=== PATIENT | male | born 1960 | race Caucasian/White ===

== ENCOUNTER 2017-07-17 11:06 | Observation (INO) | payer MEDICARE ==
[2017-07-17 11:46] LABS: #Basophils 0.1 thou/uL (0.0-0.2); #Eosinphils 0.3 thou/uL (0.0-0.7); #Monocytes 0.8 thou/uL (0.11-0.59); #Neutrophils 5.5 thou/uL (1.40-6.50); %Eosinophils 3.7 % (0.0-10.0); %Lymphocytes 22.9 % (21.0-51.0); %Monocytes 8.7 % (0.0-10.0); %Neutrophils 63.7 % (42.0-75.0); Hemoglobin 19.7 g/dL (14.0-18.0); Mean Corpuscular HGB CONC 32.4 g/dL (32.0-36.0); Mean Corpuscular Hemoglobin 33.2 pg (27.0-31.0); Mean Platelet Volume 10.8 fL (7.4-10.4); Platelet Count 178 thou/uL (130-400); Red Blood Cell (RBC) Count 5.94 mill/uL (4.70-6.10); White Blood Cell (WBC) Count 8.6 thou/uL (4.8-10.8)
[2017-07-17 12:09] LABS: ALT (SGPT) 46 U/L (8-55); AST (SGOT) 42 U/L (5-34); Alkaline Phosphatase 95 U/L (40-150); Anion Gap 18 mmol/L (10-20); BUN (Urea Nitrogen) 14 mg/dL (8.4-25.7); Bilirubin, Total 0.9 mg/dL (0.2-1.2); Calc. Creatinine Clearance 0 mL/min (70-130); Calcium 9.4 mg/dL (7.8-10.44); Carbon Dioxide 25 mmol/L (22-29); Chloride 98 mmol/L (98-107); Estimated GFR-MDRD 70; Globulin 3.5 g/dL (2.4-3.5); Glucose 252 mg/dL (70-105); Potassium 3.6 mmol/L (3.5-5.1); Protein, Total 7.5 g/dL (6.0-8.3); Sodium 137 mmol/L (136-145)
--- NOTE | 2017-07-17 12:09 | RAD ---
CHEST TWO VIEWS: HISTORY: Chest pain. Shortness of breath. COMPARISON: 11/21/2016 and 08/29/2016 FINDINGS: Normal cardiac silhouette. The pulmonary vessels and hilum are normal. The costophrenic angles are clear. No mass. No consolidation. No pneumothorax or osseous abnormalities. IMPRESSION: No acute cardiopulmonary process. POS: [facility]
[2017-07-17 12:12] LABS: CKMB 1.3 ng/mL (0-6.6); Troponin I Less than 0.010 ng/mL (< 0.028)
[2017-07-17] MEDS ORDERED: Aspirin 325 MG TAB ONE (12:12)
[2017-07-17] MEDS ORDERED: ISOVUE-370 76%-LOCM 1 ML ONE (14:00)
--- NOTE | 2017-07-17 14:04 | CT ---
CTA THORAX WITH CONTRAST: (Computed Tomographic Angiography, chest(noncoronary) with contrast material, and image postprocessin g) (PE protocol) Date: 07/17/17 HISTORY: 56-year-old male with dyspnea. COMPARISON: None. TECHNIQUE: IV injection of iodinated contrast: Isovue. Scan acquisition timing attempted to coincide with iodinated contrast bolus reaching maximal density in pulmonary arteries. 3D MIP reconstructions. FINDINGS: There is an approximately 0.5 x 0.6 x 0.6 cm noncalcified pulmonary nodule at posterolateral base of left lower lobe, very close to the pleural surface (axial image 79 of 109, series 3; oblique image 17 of 75, series 401). Nearby, located slightly more superiorly and slightly more posteriorly, there is a singular appearing nodule measuring approximately 0.5 x 0.6 x 0.5 cm. The rest of the lungs are clear. No pleural effusion or pneumothorax. No pulmonary thromboembolism. N o thoracic aortic aneurysm or dissection. No cardiomegaly or pericardial effusion. No mediastinal lym phadenopathy. Nonspecific finding of mildly enlarged right hilar lymph nodes. No destructive osseous lesion identified. There are several left old, healed posterolateral rib fracture deformities. IMPRESSION: 1. Two small left lower lobe pulmonary nodules. Recommend serial follow-up chest CTs, beginning in 6 months. 2. No pulmonary thromboembolism. 3. Multiple old, healed left rib fracture deformities. 4. Nonspecific mild right hilar lymphadenopathy. CODE LN jn[] POS: [facility]
[2017-07-17 17:43] LABS: Troponin I Less than 0.010 ng/mL (< 0.028)
[2017-07-17 20:23] LABS: Troponin I Less than 0.010 ng/mL (< 0.028)
[2017-07-17] MEDS ORDERED: Ondansetron HCl/PF 4 MG/2 ML Vial IVP PRN (20:44)
[2017-07-17] MEDS ORDERED: Bisacodyl 5 MG TAB PO PRN (20:44)
[2017-07-17] MEDS ORDERED: Acetaminophen 650 MG Suppository PR PRN (20:44)
[2017-07-17] MEDS ORDERED: Ondansetron ODT 4 MG TAB PO PRN (20:44)
[2017-07-17] MEDS ORDERED: Acetaminophen 325 MG TAB PO PRN (20:44)
[2017-07-17] MEDS ORDERED: Guaifenesin DM 100-10/5 ML UDCUP PO PRN (20:44)
[2017-07-17] MEDS: Sodium Chloride 0.9% 1,000 ML IV SCH (21:27)
[2017-07-17] MEDS: Famotidine 20 MG TAB PO SCH (21:31)
[2017-07-17] MEDS: Metoprolol Tartrate 100 MG TAB PO SCH (21:31)
[2017-07-17] MEDS: Docusate 100 MG CAP PO SCH (21:35)
[2017-07-17 21:43] VITALS: BMI 34.5
[2017-07-17] MEDS ORDERED: Prazosin HCl 1 MG CAP PO SCH (21:45)
--- NOTE | 2017-07-18 00:49 | HP ---
PRIMARY CARE PHYSICIAN: [facility]. CHIEF COMPLAINT: Chest pain. HISTORY OF PRESENT ILLNESS: This is a 56-year-old white male with a known history of COPD, who was admitted and worked up for chest pain about 6 months ago with a negative stress test. He presented to the emergency room complaining of 1 week of flu-like symptoms, congestion, coughing, subjective fever, headache, runny nose, some nausea, and muscle aches especially in his low back and his legs followed by 2 days of chest pain. The chest pain is sharp , substernal, worse with deep inspiration. In the emergency room, patient had EKG consistent with a possible old inferior infarct, but no acute changes had negative cardiac markers, but he had a severely elevated hemoglobin and hematocrit, hemoglobin at 19.7, hematocrit 60.9. Usually, it is kind of high but previously it has been elevated, but not this high in the past. Remainder of his blood work was relatively benign. Brain natriuretic peptide was minimally elevated at 118, and he has had a normal echocardiogram in the past year. Patient had had a CTA of the chest, which showed no pulmonary embolism or pneumonia, but did show some lung nodules that need followup in the future to make certain that they do not grow. Given the patient's high hematocrit and risk factors of smoking, high blood pressure, he is being observed in the hospital overnight to rule out acute coronary syndrome and hydrate him well. PAST MEDICAL HISTORY: 1. Coronary artery disease with previous IA, 7 years ago with stent placed. 2. Chronic obstructive pulmonary disease, recently started on an inhaler. 3. Hypertension. 4. Tobacco abuse. 5. Alcohol abuse. PAST SURGICAL HISTORY: Coronary angiography with stent. SOCIAL HISTORY: Patient drinks 2-3 beers on a daily basis, smokes half pack a day. No illicit drug use. He lives alone. FAMILY HISTORY: No significant family history of cardiac history or cancer per patient. ALLERGIES: No known drug allergies. CURRENT MEDICATIONS: 1. Wellbutrin 200 mg daily. 2. Prazosin 2 caps at night. 3. Metoprolol 100 mg twice a day. 4. Losartan/hydrochlorothiazide 100/25 mg 1 tablet daily. 5. Celexa 40 mg daily. 6. Symbicort 160/4.5 one puff twice a day. 7. Aspirin 81 mg daily. 8. Albuterol inhaler as needed. REVIEW OF SYSTEMS: Constitutional: See HPI. Eyes: No double vision or blurred vision. ENT: See HPI. Cardiovascular: See HPI. No palpitations or racing heart. Pulmonary: See HPI. Patient does feel a little short of breath right now and would like to try nebulizing treatments. Gastrointestinal: See HPI. No current abdominal pain and did have some diarrhea for the past few days , but none currently and no constipation. Genitourinary: No dysuria or hematuria. Musculoskeletal: See HPI. Skin: No rashes or lesions. Neurologic : No numbness, tingling, or focal weakness. PHYSICAL EXAMINATION: VITAL SIGNS: Blood pressure 144/86, pulse 58, respirations 14, O2 sat 96% on room air, temperature 98.0. GENERAL: This is a well-developed, obese white male in no apparent distress. EYES: Pupils are equal, round, and reactive to light. Oropharynx clear without lesions, erythema, or exudate. NECK: Supple, no lymphadenopathy, no thyroid nodules enlargement, no JVD. HEART: Regular rate and rhythm. No murmurs, rubs, or gallops. LUNGS: Patient has an occasional wheeze bilaterally, no significant increased work of breathing, no rales or rhonchi. ABDOMEN: Soft, obese, nontender to palpation, normoactive bowel sounds, no hepatosplenomegaly or other masses. EXTREMITIES: No clubbing, cyanosis, or edema. SKIN: No rashes or lesions. NEUROLOGIC: Patient has intact strength in all extremities and no facial droop. LABORATORY DATA: See HPI for pertinent positives. EKG: I did review the EKG done in our emergency room, it does show sinus bradycardia at 59 beats per minute, does have possible old Q-waves in the inferior leads. No acute ST changes or arrhythmias. Chest x-ray: I did review the chest x-ray done in the emergency room along with the radiologist's report. It does show no acute cardiopulmonary process. No evidence of infiltrates, no cardiomegaly. CT of the thorax done in the emergency room shows too small left lower lobe pulmonary nodules and recommended repeat CT in 6 months. No pulmonary thromboembolism. He does have multiple old-healed rib fractures, some mild right hilar lymphadenopathy that is nonspecific. ASSESSMENT AND PLAN: 1. Acute upper respiratory tract infection, flu-like illness, but this is improving has been over a week since the initiation of symptoms so no antivirals necessary at this point. We will treat with symptomatic antitussives and antipyretic medications as needed. 2. Chest pain pleuritic, likely secondary to cough. If all cardiac markers come back negative can discharge in the morning. 3. Chronic obstructive pulmonary disease with mild exacerbation. The patient is saturating well on room air and does not have a very significant lung exam right now, but we will give him some DuoNebs to help with his breathing, and we will start him on some oral steroids. No indication for antibiotics at this time. 4. Polycythemia- longstanding, likely secondary to smoking combined with acute dehydration, will recheck after rehydration and likely discharge in the morning. 5. Gastrointestinal prophylaxis, put patient on Pepcid twice a day. 6. Deep venous thrombosis prophylaxis, put patient on Lovenox subcutaneous. CODE STATUS: I did discuss with the patient, he is a FULL CODE. Should he be incapacitated, he states that his son will be his medical decision maker, his name is Ivan Branch. CHAS
[2017-07-18 05:20] LABS: #Basophils 0.1 thou/uL (0.0-0.2); #Eosinphils 0.4 thou/uL (0.0-0.7); #Lymphocytes 2.7 thou/uL (1.20-3.40); #Monocytes 0.8 thou/uL (0.11-0.59); #Neutrophils 4.3 thou/uL (1.40-6.50); %Basophils 0.8 % (0.0-1.0); %Eosinophils 4.8 % (0.0-10.0); %Lymphocytes 32.3 % (21.0-51.0); %Monocytes 9.6 % (0.0-10.0); %Neutrophils 52.6 % (42.0-75.0); Mean Corpuscular HGB CONC 32.6 g/dL (32.0-36.0); Mean Corpuscular Hemoglobin 33.6 pg (27.0-31.0); Mean Platelet Volume 10.7 fL (7.4-10.4); Platelet Count 142 thou/uL (130-400); RBC Distribution Width 11.7 % (11.5-14.5); Red Blood Cell (RBC) Count 5.07 mill/uL (4.70-6.10); White Blood Cell (WBC) Count 8.2 thou/uL (4.8-10.8)
[2017-07-18 05:36] LABS: Anion Gap 12 mmol/L (10-20); BUN (Urea Nitrogen) 12 mg/dL (8.4-25.7); Calc. Creatinine Clearance 175 mL/min (70-130); Calcium 8.6 mg/dL (7.8-10.44); Carbon Dioxide 26 mmol/L (22-29); Chloride 106 mmol/L (98-107); Estimated GFR-MDRD Greater than 90; Glucose 111 mg/dL (70-105); Potassium 3.6 mmol/L (3.5-5.1); Sodium 140 mmol/L (136-145)
[2017-07-18] MEDS ORDERED: Mometasone/Formoterol 120 PUFF INHALER INH SCH (06:30)
[2017-07-18] MEDS: Sodium Chloride 0.9% 1,000 ML IV SCH (07:48)
[2017-07-18] MEDS ORDERED: predniSONE 20 MG TAB PO SCH (08:00)
[2017-07-18] MEDS ORDERED: Aspirin 81 mg Enteric Coated Tablet PO SCH (09:00)
[2017-07-18] MEDS ORDERED: Enoxaparin Sodium 40 MG/0.4 ML SYRINGE SC SCH (09:00)
[2017-07-18] MEDS ORDERED: FLU VACC QS2017-18 36 mo. & older 0.5 ML SYRINGE IM ONE (09:00)
[2017-07-18] MEDS ORDERED: Losartan/Hydrochlorothiazide 100 mg/25 mg Tablet PO SCH (09:00)
[2017-07-18] MEDS ORDERED: Citalopram 20 MG TAB PO SCH (09:00)
[2017-07-18] MEDS ORDERED: buPROPion HCl 100 MG TAB PO SCH (09:00)
[2017-07-18] MEDS: Docusate 100 MG CAP PO SCH (09:31)
[2017-07-18] MEDS: Metoprolol Tartrate 100 MG TAB PO SCH (09:31)
[2017-07-18] MEDS: Famotidine 20 MG TAB PO SCH (09:31)
--- NOTE | 2017-07-18 11:25 | PDOC.PN ---
- Subjective Encounter Start Date: 07/18/17 Encounter Start Time: 07:30 -: old records requested/rev Patient seen and examined. No new complaints. No overnight events - Objective Resuscitation Status: Resuscitation Status FULL:Full Resuscitation MAR Reviewed: Yes Vital Signs & Weight: Vital Signs (12 hours) Temp Pulse Resp BP Pulse Ox 07/18/17 07:59 97.6 F 54 L 18 07/18/17 07:58 97.6 F 54 L 18 140/99 H 94 L 07/18/17 06:43 60 14 07/18/17 04:25 97.4 F L 58 L 20 132/79 92 L 07/18/17 00:41 55 L 18 94 L 07/17/17 23:39 97.9 F 60 18 117/74 92 L Weight Weight 252 lb 9.6 oz I&O: 07/17/17 07/18/17 07/19/17 06:59 06:59 06:59 Intake Total 1258 82 Output Total 1200 400 Balance 58 -318 Result Diagrams: 07/18/17 04:49 07/18/17 04:49 EKG Reviewed by me: Yes Phys Exam - Physical Examination Constitutional: NAD HEENT: PERRLA, moist MMs, sclera anicteric Neck: no JVD, supple Respiratory: no rales, wheezing present Cardiovascular: RRR, no significant murmur, no rub Gastrointestinal: soft, non-tender, no distention, positive bowel sounds Musculoskeletal: no edema, pulses present Neurological: non-focal, normal sensation, moves all 4 limbs Psychiatric: normal affect, A&O x 3 Skin: no rash, normal turgor Dx/Plan (1) Chest pain Code(s): R07.9 - CHEST PAIN, UNSPECIFIED Status: Acute Comment: due to cough , chest wall pain (2) Alcohol abuse Code(s): F10.10 - ALCOHOL ABUSE, UNCOMPLICATED Status: Chronic (3) Anxiety and depression Code(s): F41.8 - OTHER SPECIFIED ANXIETY DISORDERS Status: Chronic (4) CAD (coronary artery disease) Code(s): I25.10 - ATHSCL HEART DISEASE OF [place] CORONARY ARTERY W/O ANG PCTRS Status: Chronic (5) COPD (chronic obstructive pulmonary disease) Status: Chronic Qualifiers: COPD type: COPD with acute exacerbation Qualified Code(s): J44.1 - Chronic obstructive pulmonary disease with (acute) exacerbation (6) Hypertension Code(s): I10 - ESSENTIAL (PRIMARY) HYPERTENSION Status: Chronic (7) Macrocytosis without anemia Code(s): D75.89 - OTHER SPECIFIED DISEASES OF BLOOD AND BLOOD-FORMING ORGANS Status: Chronic (8) Obesity (BMI 30.0-34.9) Code(s): E66.9 - OBESITY, UNSPECIFIED Status: Chronic (9) Polycythemia secondary to smoking Code(s): D75.1 - SECONDARY POLYCYTHEMIA Status: Chronic (10) Tobacco abuse Code(s): Z72.0 - TOBACCO USE Status: Chronic - Plan cont current plan of care, respiratory therapy * counselled to quit smoking and alcohol abuse * will prescribe prednisone on discharge * medication reviewed as below * symptomatic treatment. Review of Systems - Review of Systems Constitutional: negative: fever, chills, sweats, weakness, malaise, other Eyes: negative: Pain, Vision Change, Conjunctivae Inflammation, Eyelid Inflammation, Redness, Other ENT: negative: Ear Pain, Ear Discharge, Nose Pain, Nose Discharge, Nose Congestion, Mouth Pain, Mouth Swelling, Throat Pain, Throat Swelling, Other Respiratory: Cough, Wheezing Cardiovascular: chest pain. negative: palpitations, orthopnea, paroxysmal nocturnal dyspnea, edema, light headedness, other Gastrointestinal: negative: Nausea, Vomiting, Abdominal Pain, Diarrhea, Constipation, Melena, Hematochezia, Other Genitourinary: negative: Dysuria, Frequency, Incontinence, Hematuria, Retention , Other Musculoskeletal: negative: Neck Pain, Shoulder Pain, Arm Pain, Back Pain, Hand Pain, Leg Pain, Foot Pain, Other Skin: negative: Rash, Lesions, David, Bruising, Other - Medications/Allergies Allergies/Adverse Reactions: Allergies Allergy/AdvReac Type Severity Reaction Status Date / Time No Known Drug Allergies Allergy Verified 11/21/16 11:38 Medications: Current Medications Acetaminophen (Tylenol) 650 mg PO Q4H PRN PRN Reason: Headache/Fever or Pain Albuterol/Ipratropium (Duoneb) 3 ml NEB Q4H PRN PRN Reason: SOB &/or Wheezing Albuterol/Ipratropium (Duoneb) 3 ml NEB Q3TU-WS [facility] Last Admin: 07/18/17 06:43 Dose: 3 ml Aspirin (Ecotrin) 81 mg PO DAILY [facility] Last Admin: 07/18/17 09:31 Dose: 81 mg Bisacodyl (Dulcolax) 10 mg PO DAILYPRN PRN PRN Reason: Constipation Bupropion HCl (Wellbutrin) 200 mg PO DAILY [facility] Last Admin: 07/18/17 09:31 Dose: 200 mg Citalopram Hydrobromide (Celexa) 40 mg PO DAILY [facility] Last Admin: 07/18/17 09:31 Dose: 40 mg Docusate Sodium (Colace) 100 mg PO BID [facility] Last Admin: 07/18/17 09:31 Dose: 100 mg Enoxaparin Sodium (Lovenox) 40 mg SC 0900 [facility] Last Admin: 07/18/17 09:32 Dose: 40 mg Famotidine (Pepcid) 20 mg PO BID [facility] Last Admin: 07/18/17 09:31 Dose: 20 mg Guaifenesin/Dextromethorphan (Robitussin Dm) 15 ml PO Q4H PRN PRN Reason: Cough HCTZ/Losartan Potassium (Hyzaar 100/25) 1 tab PO DAILY [facility] Last Admin: 07/18/17 09:31 Dose: 1 tab Sodium Chloride (Normal Saline 0.9%) 1,000 mls @ 100 mls/hr IV .Q10H [facility] Last Admin: 07/18/17 07:48 Dose: 1,000 mls Metoprolol Tartrate (Lopressor) 100 mg PO BID [facility] Last Admin: 07/18/17 09:31 Dose: 100 mg Mometasone Furoate/Formoterol Fumar (Dulera 200 Mcg/5 Mcg Inhaler) 1 puff INH BID-RT [facility] Last Admin: 07/18/17 06:41 Dose: 1 puff Ondansetron HCl (Zofran Odt) 4 mg PO Q6H PRN PRN Reason: Nausea/Vomiting Ondansetron HCl (Zofran) 4 mg IVP Q6H PRN PRN Reason: Nausea/Vomiting Prazosin HCl (Minipress) 4 mg PO HS [facility] Prednisone (Prednisone) 40 mg PO QAM-WM [facility] Last Admin: 07/18/17 09:30 Dose: 40 mg
[2017-07-18 11:54] VITALS: BP 171/102; TEMP 97.5
--- NOTE | 2017-07-18 13:01 | DIS ---
PRIMARY CARE PHYSICIAN: [facility] call admission. DATE OF ADMISSION: 07/17/2017 DATE OF DISCHARGE: 07/18/2017 DISCHARGE DISPOSITION: Home. PRIMARY DISCHARGE DIAGNOSES: 1. Chest pain, musculoskeletal due to cough. 2. Polycythemia secondary to smoking. 3. Mild chronic obstructive pulmonary disease exacerbation. SECONDARY DISCHARGE DIAGNOSES: Tobacco abuse disorder, alcohol abuse, anxiety, depression, coronary artery disease, COPD, hypertension, macrocytosis, obesity with BMI 34. PRIMARY PROCEDURE/OPERATION: None. RADIOLOGICAL INVESTIGATION: CT angio was negative for PE. Chest x-ray was negative for any acute pr ocess. SIGNIFICANT LABORATORY DATA: WBC 8.2, hemoglobin 17.0, platelets 142. Sodium 140, potassium 3.6, BU N 12, creatinine 0.79, calcium 8.6, AST 42, ALT 46, alkaline phosphatase 95, albumin 4.0. Cardiac en zymes negative x3. BNP 118.8. DISCHARGE MEDICATIONS: Ventolin HFA 1 puff q.4h. p.r.n., aspirin 81 mg p.o. daily, Tessalon 100 mg p .o. t.i.d. p.r.n., Symbicort 1 puff inhalation b.i.d., Wellbutrin 200 mg p.o. daily, Celexa 40 mg p.o . daily, Atrovent inhaler 2 puffs q.i.d., losartan with hydrochlorothiazide one tablet p.o. daily, Lo pressor 100 mg p.o. b.i.d., prazosin 2 mg p.o. at bedtime, prednisone 40 mg p.o. daily for 7 days. CONTRAINDICATIONS: None. CODE STATUS: FULL CODE. INPATIENT CONSULTANTS: None. ALLERGIES: No known drug allergy. DISCHARGE PLAN: Post hospital, the patient is instructed to follow with primary care physician in 1 or 2 weeks. HOSPITAL COURSE: A 56-year-old male who has ongoing tobacco and alcohol abuse history who was admitt ed by Dr. Krzysztof Lopez. Please see his H&P for further details. He was having chest pain which was re lated with cough and his chest pain description was consistent with musculoskeletal and rib cage pain . In the emergency room, he had chest x-ray which was negative for any acute process. CT angio was also negative for PE. He has extensive smoking history and he was having wheezing on his examination . He was having mild chronic obstructive pulmonary disease flare-up. We kept in hospital for 24 diogo rs for observation. We did serial cardiac enzymes and ruled out acute coronary syndrome. This patie nt already had full workup done in the recent past with a stress test as well as echocardiography and that is why he did not require any further cardiac evaluation. At this time, we are prescribing prednisone for 7 days, Atrovent inhaler prescribed. The rest of med ications will be continued as per previous. While in hospital, we provided counseling to avoid smoki ng and alcohol abuse. The patient is medically stable for discharge today. While in hospital, he wa s given IV fluid for has secondary polycythemia from smoking. The patient seen and examined at bedside today. Please see my progress note for further details.
[2017-07-18] MEDS ORDERED: Prazosin HCl 1 MG CAP PO SCH (21:00)
== END 2017-07-18 13:57 | disposition home or self-care (01) ==
LOC: ERS 11:06 → 2SW 16:45
PROVIDERS: ADMIT Emergency Medicine; ATTEND Emergency Medicine
DX: J44.1 Chronic obstructive pulmonary disease with (acute) exacerbation (principal); R07.89 Other chest pain; D75.1 Secondary polycythemia; F10.10 Alcohol abuse, uncomplicated; F41.9 Anxiety disorder, unspecified; F32.9 Major depressive disorder, single episode, unspecified; I25.10 Atherosclerotic heart disease of native coronary artery without angina pectoris; I10 Essential (primary) hypertension; D75.89 Other specified diseases of blood and blood-forming organs; E66.9 Obesity, unspecified; F17.210 Nicotine dependence, cigarettes, uncomplicated; J06.9 Acute upper respiratory infection, unspecified; R07.1 Chest pain on breathing; E86.0 Dehydration; I25.2 Old myocardial infarction; Z68.34 Body mass index [BMI] 34.0-34.9, adult; Z79.82 Long term (current) use of aspirin; Z79.899 Other long term (current) drug therapy; Z95.818 Presence of other cardiac implants and grafts
CPT/HCPCS: 71046; 71275; 80048; 80053; 82553; 83880; 84484 ×2; 85025 ×2; 93005; 94640 ×3; 96360; 96361 ×3; 96372; 99285; G0378; 36415; J1650; J7506; J7620

== ENCOUNTER 2017-07-28 03:39 | Inpatient (IN) | payer MEDICARE ==
[2017-07-28 04:09] LABS: Bilirubin Small (Negative); Blood, Urine Trace (Negative); Clarity CLOUDY (Clear); Glucose, Urine (Dipstick) Negative (Negative); Leukocyte Small (Negative); Protein, Urine (Dipstick) 30 mg/dL (Neg-Trace); Specific Gravity, Urine 1.024 (1.002-1.036)
[2017-07-28 04:12] LABS: Bacteria/HPF None Seen HPF (None Seen); Hyaline Casts/LPF 7-10 HYALINE CAST LPF (0-3 Hyaline); Pathc Cast-AUWi Flag 0.81 (0-2.49); Squamous Epithelial 0-3 HPF (0-3)
[2017-07-28 04:14] LABS: Nitrite Negative (Negative)
[2017-07-28 04:38] LABS: Hemoglobin 18.1 g/dL (14.0-18.0); Mean Corpuscular HGB CONC 34.6 g/dL (32.0-36.0); Mean Corpuscular Hemoglobin 34.8 pg (27.0-31.0); Platelet Count 213 thou/uL (130-400); RBC Distribution Width 11.8 % (11.5-14.5); Red Blood Cell (RBC) Count 5.22 mill/uL (4.70-6.10); White Blood Cell (WBC) Count 34.1 thou/uL (4.8-10.8)
[2017-07-28 05:09] LABS: ALT (SGPT) 32 U/L (8-55); AST (SGOT) 27 U/L (5-34); Alkaline Phosphatase 93 U/L (40-150); Anion Gap 16 mmol/L (10-20); BUN (Urea Nitrogen) 18 mg/dL (8.4-25.7); Bilirubin, Total 1.9 mg/dL (0.2-1.2); Calc. Creatinine Clearance 0 mL/min (70-130); Calcium 9.8 mg/dL (7.8-10.44); Carbon Dioxide 26 mmol/L (22-29); Chloride 90 mmol/L (98-107); Estimated GFR-MDRD 67; Globulin 3.5 g/dL (2.4-3.5); Glucose 141 mg/dL (70-105); Lipase 10 U/L (8-78); Protein, Total 7.5 g/dL (6.0-8.3); Sodium 129 mmol/L (136-145)
[2017-07-28 05:10] LABS: Band 1 % (5-11); Lymphocytes 8 % (21-51); MDiff Complete? YES; Monocytes 8 % (0-10); Neutrophil 83 % (42-75); PLT Morphology Comment Appears Adequate
[2017-07-28 05:21] LABS: Potassium 2.8 mmol/L (3.5-5.1)
[2017-07-28] MEDS ORDERED: metroNIDAZOLE 500 MG/100 ML BAG ONE (05:49)
[2017-07-28] MEDS ORDERED: Ondansetron HCl/PF 4 MG/2 ML Vial ONE ×2 (05:55→13:50)
[2017-07-28] MEDS ORDERED: Potassium Chloride 20 MEQ TAB ONE (06:37)
[2017-07-28] MEDS ORDERED: Lidocaine 1% w/Epinephrine 1:200K 30 ML VIAL ONE (07:42)
[2017-07-28] MEDS ORDERED: Bupivacaine 0.25% HCL 30 ML VIAL ONE (07:42)
[2017-07-28] MEDS ORDERED: Fentanyl 100 MCG/2 ML VIAL ONE (07:52)
[2017-07-28] MEDS ORDERED: Midazolam HCl 2 mg/2 ml Vial ONE (07:52)
[2017-07-28] MEDS ORDERED: HYDROmorphone 0.5 MG/0.5 ML SYRINGE ONE (07:53)
--- NOTE | 2017-07-28 09:04 | CT ---
PRELIMINARY REPORT/[facility]/EMERGENCY AFTER HOURS PROCEDURE: Addendum created by Raudel Mccloud MD on 07/28/2017 7:10 AM Central Time ([place]) THIS REPORT CONTAINS FINDINGS THAT MAY BE CRITICAL TO PATIENT CARE. The findings were verbally commun icated via telephone conference with Dr Barnes at 7:10 AM [employer] on 07/28/2017. The findings were acknowl edged and understood. Initial Report created on 07/28/2017 6:59 AM Central Time ([place]) EXAM: CT Abdomen and Pelvis With Intravenous Contrast CLINICAL HISTORY: 56 years old, male; Pain; Abdominal pain; Generalized TECHNIQUE: Axial computed tomography images of the abdomen and pelvis with intravenous contrast. Coronal reformatted images were created and reviewed. CONTRAST: 70 mL of ISOVUE administered intravenously. COMPARISON: No relevant prior studies available. FINDINGS: Lower thorax: Left lower lobe pulmonary nodule measuring 5 mm image 18 series 2. Left lower lobe pulm onary nodule measuring 5 mm image 21 series 2. ABDOMEN: Liver: Diffuse hepatic steatosis. Gallbladder and bile ducts: Unremarkable Pancreas: Unremarkable. Spleen: Calcified granuloma in the spleen. Adrenals: Unremarkable. Kidneys and ureters: 7 mm nonobstructing stone in the right kidney. Stomach and bowel: Duodenal diverticulum. Appendix: Appendix is enlarged measuring 8mm with diffuse surrounding inflammatory changes, small lay ering fluid and small focus of extraluminal gas adjacent to the base of the appendix seen in image 72 series 2. PELVIS: Bladder: Under distention of the urinary bladder with mild diffuse urinary bladder ross thickening. Reproductive: Unremarkable. ABDOMEN and PELVIS: Intraperitoneal space: See above. Bones/joints: Multilevel degenerative changes of the spine. No acute fracture. No dislocation. Soft tissues: Unremarkable. Vasculature: Unremarkable. No abdominal aortic aneurysm. Lymph nodes: Scattered non specific subcentimeter mesenteric lymph nodes. IMPRESSION: 1. Imaging findings consistent with acute appendicitis. Small focus of extraluminal gas adjacent to t he base of the appendix as described above suggestive of possible local perforation. 2. A 7 mm nonobstructing stone in the right kidney. 3. Incidental two 5mm left lower lobe pulmonary nodules. For low-risk patients, no follow-up is neces silvia. For high-risk patients (smoking history or other known risk factors) an optional chest CT at 12 months could be performed. Thank you for allowing us to participate in the care of your patient. Dictated and Authenticated by: Raudel Mccloud MD 07/28/2017 6:59 AM Central Time ([place]) FINAL REPORT ABDOMEN AND PELVIC CT SCAN WITH IV CONTRAST: EMERGENT AFTER HOURS TIME: 6:07 a.m. DATE: 07/28/17. FINDINGS: Findings consistent with acute appendicitis with some minimal extraluminal gas, evidence for at least microperforation without evidence for a drainable abscess. Several small pleural-based 0.[address] nodules in the left lower lobe. Small calcific focus in the region of the apex of the left ventr icle, possibly from a prior infarct. Minimal coronary artery calcific disease. Nonobstructing right renal calculus. Left renal cyst. POS: [facility]
[2017-07-28] MEDS ORDERED: Promethazine HCl 25 MG/ML VIAL IM PRN ×2 (10:27→11:34)
[2017-07-28] MEDS ORDERED: Dextrose 5% in Water 1,000 ML IV PRN (10:27)
[2017-07-28] MEDS ORDERED: Dextrose 50% Abboject 50 ML SYRINGE SLOW IVP PRN (10:27)
[2017-07-28] MEDS ORDERED: Morphine 4 MG/ML Carpuject SLOW IVP PRN ×2 (10:27→16:46)
[2017-07-28] MEDS ORDERED: traMADol HCl 50 MG TAB PO PRN ×2 (10:33)
--- NOTE | 2017-07-28 10:33 | HP ---
DATE OF ADMISSION: 07/28/2017 HISTORY OF PRESENT ILLNESS: A 56-year-old obese man presented to the emergency department with 24-hour history of right lower quadrant abdominal pain which he describes as a sharp, rated at 1 0/10. Pain was associated with two episodes of nausea and nonbilious emesis. The patient denies any fever, but admits to chills. Denies any diarrhea. PAST MEDICAL HISTORY: Pertinent for essential hypertension and chronic depression. SURGICAL HISTORY: Pertinent for bilateral shoulder arthroplasties. SOCIAL HISTORY: He is currently retired. He smokes 1 pack of cigarettes per day and has done so for over 40 years. He drinks 12-pack of beers daily. He denies any illicit drug abuse. FAMILY HISTORY: Notable for paternal grandfather with leukemia and mother with breast carcinoma. He denies any family history of heart disease or diabetes mellitus. REVIEW OF SYSTEMS: A 10 point review of systems essentially unremarkable except for as stated in pas t medical history and chief complaint. CURRENT MEDICATIONS: Includes antidepressants and antihypertensive. He does not recall the specific s. ALLERGIES: Patient denies any known drug allergies. PHYSICAL EXAMINATION: GENERAL: This reveals a 56-year-old obese man who and interactive and appears stated age. The patient is alert and oriented x3, appears to be in moderate acute distress secondary to abdominal pa in. VITAL SIGNS: Currently includes blood pressure 128/77, pulse 73, respiratory rate 16, temperature is 98.4 degrees Fahrenheit, oxygen saturation is 97% on room air. HEENT: Examination reveals normocephalic and atraumatic. Pupils are equal, round, and reactive to l ight and accommodation. Extraocular muscles are intact bilaterally. No sclerae icterus is present. Oral mucosa is pink and moist. No lesions are noted. NECK: Supple. No palpable lymphadenopathy or thyromegaly present. HEART: Reveals regular rate and rhythm, no murmurs or gallops auscultated. LUNGS: Clear to auscultation bilaterally. His breathing is regular and unlabored. ABDOMEN: Soft and obese. He has right lower quadrant tenderness to palpation at McBurney's. He has a positive Rovsing sign. Liver and spleen are nonpalpable below costal margins. EXTREMITIES: Reveals 2+ radial and pedal pulses bilaterally. No ankle edema is present. NEUROLOGIC: Reveals no focal deficits present. LABORATORY DATA AND IMAGING DATA: I personally reviewed laboratory studies including CBC with 34,100 white blood cells, hemoglobin 18.1, hematocrit is 52.4, platelet count is 213,000. Differential cou nt is as follows, 83% segmented neutrophils, 1 band, 8 lymphocytes, and 8 monocytes. Metabolic profi le: Sodium 129, potassium is 2.8, chloride is 90, bicarbonate is 26, BUN 18, creatinine is 1.14, and glucose is 141. Total bilirubin is 1.9, AST and ALT normal are at 27 and 32 respectively. Serum li pase is also normal at 10. I have reviewed CT scan of the abdomen and pelvis which reveals a dilated appendix with localized small pneumoperitoneum suggestive of perforation with significant periappend iceal fat stranding. IMPRESSION: 1. Acute appendicitis with perforation. 2. History of ethanol abuse. PLAN: Laparoscopic appendectomy. Above findings and plan discussed with the patient who indicates understanding of the information giv en. I have answered his questions. I have advised the patient of the risks and benefits of the prop osed surgery. Risks include, but not limited to bleeding, infection, injury to bowel and surrounding structures. The patient indicates understanding of this information, which I had presented to him i n the presence of his nurse. He has granted consent for this admission and surgical intervention.
--- NOTE | 2017-07-28 10:49 | OP ---
DATE OF OPERATION: 07/28/2017 PREOPERATIVE DIAGNOSIS: Acute appendicitis with perforation. POSTOPERATIVE DIAGNOSES: 1. Acute appendicitis with perforation. 2. Periappendiceal abscess. SURGERY PERFORMED: Laparoscopic appendectomy. SURGEON: Pedro Mccarthy D.O. ANESTHESIA: General endotracheal. ESTIMATED BLOOD LOSS: 20 mL. FLUIDS GIVEN: 1200 mL crystalloids. SPONGE AND INSTRUMENT COUNT: Certified as correct x2. COMPLICATIONS: None apparent at time of operation. INDICATIONS FOR PROCEDURE: A 56-year-old man presented with what reported as 24-hour histo ry of abdominal pain. Clinical and radiographic examination was consistent with acute appendicitis w ith perforation for which patient was brought to the operating room for appendectomy. FINDINGS: Consistent with acute suppurative retrocecal appendix with perforation and 2 pieces of nikolai endicolith next to the ruptured appendix. Also noted is periappendiceal abscess with a fair amount o f fibrinous exudates. DESCRIPTION OF PROCEDURE: Informed consent obtained from the patient who was brought to the operatin g room and placed in supine position. Following general anesthesia, a Hill catheter was inserted an d placed bedside to drain. Abdomen is sterilely prepped and draped in the usual fashion. Skin below the umbilicus was infiltrated with 0.25% Marcaine with epinephrine. A small curvilinear infraumbili sathish incision was made using 11 scalpel. Umbilical stalk was grasped with Severino and elevated. Veres s needle was inserted through the incision and placed in the peritoneal cavity through which the abdo men was insufflated with 3 liters of CO2 gas. Intra-abdominal pressure was noted at 3 mmHg. Followi ng abdominal insufflation, Veress needle was removed and a 5 mm trocar was introduced using a Visipor t under laparoscopy. Laparoscopy confirmed proper placement of the port, no injuries to underlying s tructures. Additional laparoscopy reveals right lower quadrant completely encased by omental adhesio ns. Under direct laparoscopy, a 5 mm suprapubic and 12 mm left lower quadrant ports were placed afte r the overlying skin was infiltrated with 0.25% Marcaine with epinephrine and appropriate incisions m kirt. The patient was placed in a Trendelenburg position and rotated to his left. I then used a Pres tige grasper to bluntly take down omental adhesions to reveal the distal ileum completely adhered to the right lateral gutter. Using EndoShears with cautery, fibrinous attachments were taken down. Onc e the adhesions were broken, the distal ileum was reflected medially to expose suppurative retrocecal appendix that was densely adhered to the right lateral gutter. Using an Endo suction catheter appen diceal abscess was evacuated. Fibrinous attachments were broken down bluntly to reveal the appendico cecal junction. Endo [place] forceps was introduced through the suprapubic port site grasping the ap pendix which was elevated. I then used a [place] dissector to create a rent through the mesoappendi x at the base. Endo-CYDNEY with a blue load was then used to divide the appendix at appendicocecal junc tion. Using white load of the Endo-CYDNEY, the mesoappendix was serially divided at the base with good hemostasis. The suppurative appendix and 2 pieces of appendicoliths were delivered off the abdominal cavity using an EndoCatch. Operative site was copiously irrigated with saline, noting good hemostas is in place. A #19 Topher drain was introduced into the operative site and allowed to exit the abdomi nal cavity through the suprapubic port site. The drain was secured to the anterior abdominal wall us ing 2-0 silk suture. Finding no other pathology, laparoscopy was terminated. Fascia of the left low er quadrant port was closed using 0 Vicryl suture and Endo closure device under laparoscopy. Abdomen was desufflated. The ports and instruments were removed and accounted for. Remainder of the skin i ncisions were then closed using 4-0 Monocryl suture in subcuticular fashion. Dermabond was applied o beena the incisions. The patient tolerated this operation without any apparent complication and was returned to recovery r oom in satisfactory condition.
[2017-07-28] MEDS ORDERED: Sodium Chloride For Inhalation 0.9% 3 ML NEB ONE (11:28)
[2017-07-28] MEDS ORDERED: Ondansetron HCl/PF 4 MG/2 ML Vial IVP PRN (11:34)
[2017-07-28] MEDS ORDERED: Promethazine HCl 25 MG/ML VIAL SLOW IVP PRN (11:34)
[2017-07-28] MEDS ORDERED: Propofol 500 MG/50 ML VIAL ONE ×3 (11:38→12:13)
[2017-07-28] MEDS ORDERED: Albuterol Sulfate 2.5 mg/3 ml Neb NEB SCH (11:45)
[2017-07-28] MEDS ORDERED: Ketorolac Tromethamine 30 MG/ML VIAL IVP SCH (12:00)
[2017-07-28] MEDS ORDERED: Propofol 1,000 MG/100 ML VIAL IV PRN (12:15)
--- NOTE | 2017-07-28 13:20 | RAD ---
CHEST 1 VIEW: HISTORY: Chest pain. COMPARISON: 11/21/16. FINDINGS: Cardiac silhouette is magnified by projection. Pulmonary vasculature is now engorged and accentuated by shallow inspiration. Focal infiltrates are present within the superior segment right lower lobe and the left posterior lung base. Mediastinum is midline. The tip of an endotracheal catheter overlies the thoracic inlet. Cardiac mo nitor leads overlie the chest. IMPRESSION: 1. Bilateral infiltrates. Cause is not evident. 2. Endotracheal catheter is in good radiographic position. POS: YULISA
[2017-07-28] MEDS ORDERED: ISOVUE-370 76%-LOCM 1 ML ONE (13:24)
[2017-07-28] MEDS ORDERED: fentaNYL Citrate/PF 2,000 MCG in Sodium Chloride 0.9% 60 ML IV PRN (13:30)
[2017-07-28] MEDS ORDERED: Fentanyl CADD 250 ML IVPB SCH ×2 (13:30→14:03)
[2017-07-28] MEDS ORDERED: Heparin 10,000 UNITS/ 10 ML VIAL SLOW IVP SCH (13:30)
[2017-07-28] MEDS ORDERED: ePHEDrine/0.9% NaCl/PF SYRINGE 50 mg/10 ml ONE (13:50)
[2017-07-28] MEDS ORDERED: Succinylcholine Chloride 20 MG/ML 10 ml SYRINGE FS ONE (13:50)
[2017-07-28] MEDS ORDERED: Ketorolac Tromethamine 30 MG/ML VIAL ONE (13:50)
[2017-07-28] MEDS ORDERED: Dexamethasone 20 MG/5 ML VIAL ONE (13:50)
[2017-07-28] MEDS ORDERED: Metoclopramide HCl 10 MG/2 ML VIAL ONE (13:50)
[2017-07-28] MEDS ORDERED: Lidocaine 1% PF 5 ML VIAL ONE (13:50)
[2017-07-28] MEDS ORDERED: Labetalol 100 MG/20 ML MDV ONE (13:50)
[2017-07-28] MEDS ORDERED: PHENYLEPHRINE-NS 100 MCG/ML 10 ML SYRINGE ONE (13:50)
[2017-07-28] MEDS ORDERED: PROPOFOL 200 MG/20 ML VIAL ONE (13:50)
[2017-07-28] MEDS ORDERED: Glycopyrrolate 0.2 MG/ML 5 ML SYRINGE ONE (13:50)
--- NOTE | 2017-07-28 13:56 | PRG ---
DATE OF SERVICE: 07/28/2017 SUBJECTIVE: Mr. Branch is a 56-year-old man with history of a 12 pack per day alcohol abuse. He als o smokes 1-2 packs of cigarettes per day and has done so for over 30 years. The patient underwent la paroscopic appendectomy and drainage of periappendiceal abscess. Postoperatively, patient failed ext ubation. He was hypoxemic in the recovery room requiring reintubation. Currently, he is sedated on mechanical ventilatory support. He awakens to voice, moves all extremities and follows commands. OBJECTIVE: CURRENT VITAL SIGNS: Includes blood pressure 108/68, pulse is 88, respiratory rate is 25 on full mec hanical ventilatory support, SIMV of 25, PEEP of 8, pressure support of 10, FiO2 of 100%. HEENT: Examination reveals normocephalic and atraumatic. Pupils equal, round, and reactive to light and accommodation. Extraocular muscles are intact bilaterally. No sclerae icterus is present. Ora l mucosa is pink and moist. No lesions are noted. He has no jugular venous distention noted. HEART: Reveals regular rate and rhythm, no murmurs or gallops auscultated. LUNGS: Reveals diffuse expiratory wheezes. Breathing is tachypneic; however, unlabored. ABDOMEN: Soft and obese. Incisional scars remain intact and clean. The Estiven-Rosenberg drain returne d a small amount of serosanguineous fluid. NEUROLOGIC: Examination reveals no focal deficits present. LABORATORY DATA AND IMAGING DATA: Post-intubation arterial blood gas reveals pO2 of 70 on FiO2 of 10 0%. Post-intubation chest x-ray reveals right middle lobe pulmonary infiltrates. IMPRESSION: 1. Acute postoperative hypoxemic respiratory failure. 2. Acute obstructive pulmonary disease exacerbation. 3. Right middle lobe pulmonary infiltrate suspicious for acute pneumonia. PLAN: 1. Continue with full mechanical ventilator support with PEEP. 2. Continue with bronchodilator therapy. We will add a burst of steroids. 3. We will also initiate heparin by continuous infusion as we were unable to obtain a CT scan of the chest to rule out pulmonary embolism. This is because the patient had IV contrast CT scan of the ab domen and pelvis earlier today. 4. Continue with broad spectrum antibiotic therapy. Above findings and plan discussed with the patient's son. He was made aware that the patient will li magdalena be on mechanical ventilator support for a few days.
[2017-07-28] MEDS ORDERED: fentaNYL Citrate/PF 2,000 MCG in Sodium Chloride 0.9% 60 ML IV SCH (14:03)
[2017-07-28] MEDS ORDERED: Lorazepam 2 MG/ML VIAL SLOW IVP PRN (14:03)
[2017-07-28] MEDS ORDERED: Morphine 2 MG/ML SYRINGE SLOW IVP PRN (14:03)
[2017-07-28 14:27] LABS: Hemoglobin 16.1 g/dL (14.0-18.0); Platelet Count 170 thou/uL (130-400)
[2017-07-28 14:37] LABS: PTT 28.9 SEC (22.9-36.1)
[2017-07-28 14:49] LABS: CKMB 1.5 ng/mL (0-6.6); Troponin I 0.036 ng/mL (< 0.028)
[2017-07-28 14:57] VITALS: BMI 31.1
[2017-07-28 15:08] LABS: INR-International Normal Ratio 1.3; Prothrombin Time 15.9 SEC (12.0-14.7)
[2017-07-28] MEDS: NS 0.9% w/ 20 MEQ KCL 1,000 ML/1,000 ML BAG IV SCH ×2 (15:38→22:04)
[2017-07-28] MEDS: Acetaminophen 500 MG TAB PO SCH ×3 (15:39→23:37)
[2017-07-28] MEDS: Oxazepam 10 MG CAP PO SCH ×3 (15:39→23:37)
[2017-07-28] MEDS: Heparin 25,000 units/D5W 500 ML IVPB SCH ×2 (16:04→16:08)
[2017-07-28] MEDS: Ketorolac Tromethamine 30 MG/ML VIAL IVP SCH ×2 (17:26→23:37)
[2017-07-28] MEDS: Piperacillin/Tazobactam 3.375 GM in Sodium Chloride 0.9% 100 ML IVPB SCH ×3 (17:28→23:37)
[2017-07-28 17:37] LABS: pH, Arterial 7.26 (7.35-7.45)
[2017-07-28 17:39] LABS: Actual Bicarbonate (HCO3a) 29.1 mEq/L (22-26); Base Excess (BEa) 0.1 mEq/L (0 (+/-) 2.5); CO2 Tension 66.4 mmHg (35.0-45.0); O2 Tension (PaO2) 93.3 mmHg (80.0-100.0)
[2017-07-28 17:40] LABS: Analyzer IN Cardio OR; Calcium, Ionized 1.1 mmol/L (1.12-1.30); Hematocrit-ABG 20.8 % (42.0-52.0); Hemoglobin (Hb) 15.8 g/dL (14.0-18.0); Puncture Site RRA
[2017-07-28] MEDS: Mometasone/Formoterol 120 PUFF INHALER INH SCH (18:52)
[2017-07-28] MEDS ORDERED: Potassium Chloride 40 MEQ in Sodium Chloride 0.9% 250 ML 250 ML IVPB SCH (19:15)
[2017-07-28] MEDS ORDERED: Enoxaparin Sodium 30 MG/0.3 ML SYRINGE SC SCH (21:00)
[2017-07-28] MEDS: Metoprolol Tartrate 50 MG TAB PO SCH (21:45)
[2017-07-28] MEDS: Prazosin HCl 1 MG CAP PO SCH (22:05)
--- NOTE | 2017-07-28 23:46 | PRG ---
DATE OF SERVICE: 07/28/2017 SUBJECTIVE: This is a 56-year-old gentleman with a history of hypertension and COPD, who was admitte d earlier for acute appendicitis. Postoperatively, the patient was reintubated in the PACU. He has since been extubated in the ICU. Upon my evaluation, the patient is on 3L of oxygen via nasal cannul a and vocalized no complaint. He states his pain has been controlled. OBJECTIVE: VITAL SIGNS: Reviewed and stable. O2 sat is 95% on 3L nasal cannula. GENERAL: The patient is resting in bed, in no acute distress. CHEST: Breathing is nonlabored. ASSESSMENT AND PLAN: As documented in progress note earlier by Dr. Mccarthy. Continue care as ordered. Continue to monitor. A.m. labs. Wean O2 as tolerated.
[2017-07-29 02:26] LABS: PTT 141.8 SEC (22.9-36.1)
[2017-07-29 02:29] LABS: Anion Gap 14 mmol/L (10-20); BUN (Urea Nitrogen) 18 mg/dL (8.4-25.7); Calc. Creatinine Clearance 110 mL/min (70-130); Calcium 8.4 mg/dL (7.8-10.44); Carbon Dioxide 20 mmol/L (22-29); Chloride 101 mmol/L (98-107); Estimated GFR-MDRD 61; Glucose 199 mg/dL (70-105); Magnesium 1.6 mg/dL (1.6-2.6); Phosphorus 2.1 mg/dL (2.3-4.7); Potassium 4.3 mmol/L (3.5-5.1); Sodium 131 mmol/L (136-145)
[2017-07-29 02:50] LABS: Band 12 % (5-11); Hemoglobin 15.5 g/dL (14.0-18.0); Lymphocytes 3 % (21-51); MDiff Complete? YES; Mean Corpuscular HGB CONC 32.8 g/dL (32.0-36.0); Mean Corpuscular Hemoglobin 34.3 pg (27.0-31.0); Mean Platelet Volume 10.2 fL (7.4-10.4); Neutrophil 85 % (42-75); Platelet Count 184 thou/uL (130-400); RBC Distribution Width 11.9 % (11.5-14.5); Red Blood Cell (RBC) Count 4.52 mill/uL (4.70-6.10); White Blood Cell (WBC) Count 31.8 thou/uL (4.8-10.8)
[2017-07-29] MEDS: Acetaminophen 500 MG TAB PO SCH ×4 (05:55→23:40)
[2017-07-29] MEDS: Oxazepam 10 MG CAP PO SCH ×4 (05:55→23:40)
[2017-07-29] MEDS: Piperacillin/Tazobactam 3.375 GM in Sodium Chloride 0.9% 100 ML IVPB SCH ×4 (05:55→23:40)
[2017-07-29] MEDS: Ketorolac Tromethamine 30 MG/ML VIAL IVP SCH ×3 (05:55→18:08)
[2017-07-29] MEDS: NS 0.9% w/ 20 MEQ KCL 1,000 ML/1,000 ML BAG IV SCH (06:46)
[2017-07-29] MEDS: Mometasone/Formoterol 120 PUFF INHALER INH SCH ×2 (07:25→19:14)
[2017-07-29] MEDS: Heparin 25,000 units/D5W 500 ML IVPB SCH (07:51)
[2017-07-29] MEDS: Ondansetron HCl/PF 4 MG/2 ML Vial IVP PRN (07:59)
[2017-07-29] MEDS: Losartan/Hydrochlorothiazide 100 mg/25 mg Tablet PO SCH (08:05)
[2017-07-29] MEDS: Metoprolol Tartrate 50 MG TAB PO SCH ×2 (08:05→21:26)
[2017-07-29] MEDS: Citalopram 20 MG TAB PO SCH (08:05)
[2017-07-29] MEDS: Folic Acid 1 MG TAB PO SCH (08:05)
[2017-07-29 08:21] LABS: CKMB 2.1 ng/mL (0-6.6)
[2017-07-29] MEDS ORDERED: Sodium Phosphate 30 MMOL in Sodium Chloride 0.9% 250 ML 250 ML IVPB SCH (08:30)
[2017-07-29 08:45] LABS: Troponin I Less than 0.010 ng/mL (< 0.028)
[2017-07-29] MEDS ORDERED: Enoxaparin Sodium 30 MG/0.3 ML SYRINGE SC SCH (09:00)
[2017-07-29] MEDS ORDERED: HumaLOG 300 UNITS/3 ML VIAL SC PRN (10:44)
[2017-07-29] MEDS ORDERED: Dextrose 50% Abboject 50 ML SYRINGE SLOW IVP PRN (10:44)
[2017-07-29] MEDS ORDERED: Dextrose 5% in Water 1,000 ML IV PRN (10:44)
--- NOTE | 2017-07-29 11:06 | PRG ---
DATE OF SERVICE: 07/29/2017 SUBJECTIVE: Mr. Branch is awake and alert. He is status post laparoscopic appendectomy and drainage of periappendiceal abscess yesterday. The patient developed postoperative acute respiratory failure secondary to acute COPD exacerbation. Currently, he denies any dyspnea, chest pain or syncope. OBJECTIVE: VITAL SIGNS: Include blood pressure 120/83, pulse 77, respiratory rate is 20. Maximum temperature s josiane admission is 97.8 degrees Fahrenheit, oxygen saturation currently 94% on 2 liters by nasal cannu la oxygen. HEENT: Examination reveals normocephalic and atraumatic. Pupils are equal, round, reactive to light and accommodation. HEART: Reveals regular rate and rhythm, no murmurs or gallops auscultated. LUNGS: Clear to auscultation bilaterally. Breathing is regular and unlabored. ABDOMEN: Soft and obese. Incisions remain intact, clean, and dry. He has no gross rebound tenderne ss on examination. Estiven-Rosenberg drain which was placed in surgery has returned 110 mL of serosangui neous fluid. LABORATORY DATA: Includes CBC with 31,800 white blood cells, hemoglobin 15.5, hematocrit is 47.2, an d platelet count is 184,000. Metabolic profile: Sodium 131, potassium is 4.3, chloride is 101, bica rbonate is 20, BUN 18, creatinine is 1.23, glucose 199, magnesium 1.6, phosphorus 2.1. IMPRESSION: 1. Postoperative day #1 status post laparoscopic appendectomy and drainage of periappendiceal absces s. 2. Resolved acute chronic obstructive pulmonary disease exacerbation. PLAN: 1. Continue with bolster steroids. 2. Increase activity as tolerated. 3. We will continue clear liquid diet until return of bowel function. The patient indicates underst anding of information I have given him today. I have answered his questions. We will transfer him t o the general surgical floor.
[2017-07-29] MEDS ORDERED: Morphine 5 MG/ML SYRINGE SLOW IVP PRN (16:45)
[2017-07-29] MEDS: Prazosin HCl 1 MG CAP PO SCH (21:57)
--- NOTE | 2017-07-29 21:58 | PRG ---
DATE OF SERVICE: 07/29/2017 SUBJECTIVE: Mr. Nadir Branch is hospital day #2 postop day #1 status post laparoscopic appendectomy . The patient has done well throughout the day. Heparin drip was stopped and patient was transferre d to the surgical floor. Upon my evaluation, he appears comfortable and vocalized complaint. OBJECTIVE: VITAL SIGNS: Reviewed and stable. GENERAL: The patient is resting in bed in no acute. Breathing is nonlabored. He is on 2 liters via l nasal cannula with O2 sat of 95%. ASSESSMENT AND PLAN: As documented in daily progress note. Continue care as ordered. Continue to m onitor.
[2017-07-30] MEDS: Piperacillin/Tazobactam 3.375 GM in Sodium Chloride 0.9% 100 ML IVPB SCH (05:34)
[2017-07-30] MEDS: Acetaminophen 500 MG TAB PO SCH ×4 (05:34→23:43)
[2017-07-30] MEDS: Oxazepam 10 MG CAP PO SCH ×4 (05:34→23:43)
[2017-07-30 07:02] LABS: Hemoglobin 15.6 g/dL (14.0-18.0); Mean Corpuscular HGB CONC 33.6 g/dL (32.0-36.0); Mean Corpuscular Hemoglobin 34.9 pg (27.0-31.0); Mean Platelet Volume 10.6 fL (7.4-10.4); Platelet Count 225 thou/uL (130-400); RBC Distribution Width 11.9 % (11.5-14.5); Red Blood Cell (RBC) Count 4.47 mill/uL (4.70-6.10); White Blood Cell (WBC) Count 25.7 thou/uL (4.8-10.8)
[2017-07-30] MEDS: Mometasone/Formoterol 120 PUFF INHALER INH SCH ×2 (07:31→19:53)
[2017-07-30 07:33] LABS: Band 4 % (5-11); Lymphocytes 2 % (21-51); MDiff Complete? YES; Monocytes 2 % (0-10); Neutrophil 92 % (42-75); RBC Morphology Normal
[2017-07-30 07:39] LABS: Anion Gap 15 mmol/L (10-20); BUN (Urea Nitrogen) 20 mg/dL (8.4-25.7); Calc. Creatinine Clearance 112 mL/min (70-130); Calcium 8.4 mg/dL (7.8-10.44); Carbon Dioxide 22 mmol/L (22-29); Chloride 101 mmol/L (98-107); Estimated GFR-MDRD 63; Glucose 155 mg/dL (70-105); Magnesium 1.9 mg/dL (1.6-2.6); Phosphorus 3.2 mg/dL (2.3-4.7); Potassium 3.7 mmol/L (3.5-5.1); Sodium 134 mmol/L (136-145)
[2017-07-30] MEDS ORDERED: traMADol HCl 50 MG TAB PO PRN (08:50)
[2017-07-30] MEDS: Aspirin 81 mg Enteric Coated Tablet PO SCH (09:02)
[2017-07-30] MEDS: Folic Acid 1 MG TAB PO SCH (09:03)
[2017-07-30] MEDS: Amoxicillin/Potassium Clav 875 MG TAB PO SCH ×2 (09:03→20:32)
[2017-07-30] MEDS: buPROPion HCl 100 MG TAB PO SCH (09:03)
[2017-07-30] MEDS: Citalopram 20 MG TAB PO SCH (09:03)
[2017-07-30] MEDS: traMADol HCl 50 MG TAB PO PRN ×2 (09:03→14:52)
[2017-07-30] MEDS: Losartan/Hydrochlorothiazide 100 mg/25 mg Tablet PO SCH (09:04)
[2017-07-30] MEDS: Metoprolol Tartrate 50 MG TAB PO SCH ×2 (09:04→20:32)
--- NOTE | 2017-07-30 11:10 | PRG ---
DATE OF SERVICE: 07/30/2017 ATTENDING PHYSICIAN: Dr. Pedro Mccarthy SUBJECTIVE: The patient is a 56-year-old obese male who presented to the ED on 07/28/2017 and was found to have acute appendicitis. He is now postop day #2 status post laparoscopic appendect hans and drainage of a periappendiceal abscess. Postoperatively, he developed acute respiratory failu re secondary to acute chronic obstructive pulmonary disease exacerbation. He has been weaned off the ventilator and is currently on the floor and stable. He does report some pain this morning, 11/01, b ut does not report any other complaints. OBJECTIVE: VITAL SIGNS: BP 117/73, pulse 88, temperature 97.6, respirations 20, O2 sat 96% on 1 liter nasal can nula. GENERAL: Obese adult male who appears older than his stated age, lying in bed in some amount of dist ress with pain behaviors such as facial grimacing. HEENT: Normocephalic, atraumatic. LUNGS: His lungs are clear to auscultation bilaterally with normal effort. CARDIOVASCULAR: He has a regular rate and rhythm with no murmurs, gallops or rubs. ABDOMEN: Soft, obese, but nondistended. His incision is intact, clean, and dry. He has approximate ly 25 mL of serosanguineous drainage in his OCTAVIA drain. LABORATORY DATA: Hematology; WBC is 25.7, hemoglobin 15.6, hematocrit 46.5, platelet count 225. ASSESSMENT: 1. Postop day #2, status post laparoscopic appendectomy and drainage of appendiceal abscess. 2. Chronic obstructive pulmonary exacerbation, resolved. PLAN: 1. Discontinue Solu-Medrol, begin Prednisone taper. 2. MiraLax for bowel function. 3. The patient can begin p.o. meds. 4. OCTAVIA drain removal. This patient was seen and examined along with Dr. Chaparro Cota on rounds this morning in place of Sam Mccarthy. Dr. Cota agrees with the assessment and plan.
[2017-07-30 14:02] LABS: Hemoglobin 14.9 g/dL (14.0-18.0); Platelet Count 235 thou/uL (130-400)
[2017-07-30] MEDS ORDERED: Polyethylene Glycol 3350 17 GM Packet PO PRN (14:06)
[2017-07-30] MEDS: Ibuprofen 600 MG TAB PO SCH ×2 (14:52→21:57)
[2017-07-30] MEDS ORDERED: Polyethylene Glycol 3350 17 GM Packet PO SCH (18:15)
[2017-07-30] MEDS: Prazosin HCl 1 MG CAP PO SCH (20:33)
--- NOTE | 2017-07-30 21:25 | PRG ---
DATE OF SERVICE: 07/30/2017 SUBJECTIVE: This is a 56-year-old gentleman status post appendectomy, postop day #2. The patient's OCTAVIA drain was removed earlier today. He has been started on p.o. medications. He has not yet had a b owel movement. Upon my evaluation, he vocalized no complaints. OBJECTIVE: VITAL SIGNS: Reviewed and stable. GENERAL: The patient is resting in bed in no acute distress. RESPIRATORY: Breathing is nonlabored. He is on room air. ABDOMEN: Soft with minimal tenderness. No distention, guarding, or rigidity. ASSESSMENT AND PLAN: As documented in daily progress note. Continue care as ordered. Continue to m onitor. The patient should be eligible for discharge once he has had a bowel movement.
[2017-07-31] MEDS: Ondansetron HCl/PF 4 MG/2 ML Vial IVP PRN ×2 (02:53→12:05)
[2017-07-31] MEDS: Oxazepam 10 MG CAP PO SCH ×4 (05:33→23:59)
[2017-07-31] MEDS: Ibuprofen 600 MG TAB PO SCH ×3 (05:33→21:07)
[2017-07-31] MEDS: Acetaminophen 500 MG TAB PO SCH ×4 (05:33→23:59)
[2017-07-31 07:27] LABS: #Basophils 0.1 thou/uL (0.0-0.2); #Lymphocytes 2.1 thou/uL (1.20-3.40); #Neutrophils 11.5 thou/uL (1.40-6.50); %Basophils 0.5 % (0.0-1.0); %Eosinophils 0.3 % (0.0-10.0); %Lymphocytes 14.4 % (21.0-51.0); %Neutrophils 77.8 % (42.0-75.0); Hemoglobin 15.1 g/dL (14.0-18.0); Mean Corpuscular HGB CONC 32.4 g/dL (32.0-36.0); Mean Corpuscular Hemoglobin 33.7 pg (27.0-31.0); Mean Platelet Volume 9.6 fL (7.4-10.4); Platelet Count 235 thou/uL (130-400); RBC Distribution Width 11.8 % (11.5-14.5); Red Blood Cell (RBC) Count 4.47 mill/uL (4.70-6.10); White Blood Cell (WBC) Count 14.8 thou/uL (4.8-10.8)
[2017-07-31] MEDS: Mometasone/Formoterol 120 PUFF INHALER INH SCH ×2 (07:29→19:05)
[2017-07-31] MEDS: Amoxicillin/Potassium Clav 875 MG TAB PO SCH ×2 (08:51→17:44)
[2017-07-31] MEDS: Folic Acid 1 MG TAB PO SCH (08:51)
[2017-07-31] MEDS: buPROPion HCl 100 MG TAB PO SCH (08:51)
[2017-07-31] MEDS: Metoprolol Tartrate 50 MG TAB PO SCH (08:51)
[2017-07-31] MEDS: predniSONE 20 MG TAB PO SCH (08:52)
[2017-07-31] MEDS: Citalopram 20 MG TAB PO SCH (08:52)
[2017-07-31] MEDS: Losartan/Hydrochlorothiazide 100 mg/25 mg Tablet PO SCH (08:52)
[2017-07-31] MEDS: Aspirin 81 mg Enteric Coated Tablet PO SCH (08:52)
[2017-07-31] MEDS ORDERED: Polyethylene Glycol 3350 17 GM Packet PO PRN (09:00)
--- NOTE | 2017-07-31 11:20 | PRG ---
DATE OF SERVICE: 07/31/2017 SUBJECTIVE: Mr. Branch is a 56-year-old man who is postoperative day #3 status post laparoscopic nikolai endectomy and drainage of periappendiceal abscess. The patient reports adequate pain control today. He tolerated general diet, although he had one bout of nonbilious emesis approximately 0500 hours th is morning. Currently, he denies any nausea. He has had one bowel movement. He passes flatus. OBJECTIVE: VITAL SIGNS: Today includes blood pressure 154/83, pulse is 66, respiratory rate is 15. Maximum tem perature in the last 24 hours is 97.8 degrees Fahrenheit, oxygen saturation is 93% on room air. HEENT: Reveals normocephalic and atraumatic. Pupils equal, round, and reactive to light and accommo dation. He has no sclerae icterus present. There was no jugular venous distention noted. HEART: Reveals regular rate and rhythm, no murmurs or gallops auscultated. CHEST: Lungs clear to auscultation bilaterally. Breathing is regular and unlabored. ABDOMEN: Soft and nondistended. Incisions remain intact, clean, and dry. He has no gross rebound t enderness on examination. LABORATORY DATA: Today includes CBC with decreasing white blood cell count of 14,800 in contrast to 25,700 yesterday. Hemoglobin and hematocrit are stable at 15.1 and 46.5 respectively. Platelet coun t is also stable at 235,000. Metabolic profile: Sodium 134, potassium is 3.7, chloride is 101, bica rbonate is 22, BUN 20, creatinine is 1.20, glucose 155. Magnesium 1.9, phosphorus 3.2. IMPRESSION: Postoperative day #3 status post laparoscopic appendectomy and drainage of periappendice al abscess. PLAN: Continue current care. Increase activity. The patient will be discharged home later today if no nausea or vomiting. We will increase his Lopressor to 100 mg p.o. b.i.d., which is his home dose . Above findings and plan discussed with the patient who indicates understanding of information give n. I have answered his questions.
[2017-07-31] MEDS: hydrALAZINE 20 MG/ML VIAL SLOW IVP PRN ×2 (13:39→17:45)
[2017-07-31] MEDS: traMADol HCl 50 MG TAB PO PRN (15:19)
[2017-07-31] MEDS: Metoprolol Tartrate 100 MG TAB PO SCH (21:06)
[2017-07-31] MEDS: Prazosin HCl 1 MG CAP PO SCH (21:07)
--- NOTE | 2017-08-01 02:19 | PRG ---
DATE OF SERVICE: 07/31/2017 SUBJECTIVE: This is a 56-year-old gentleman status post appendectomy, postop day #3. At this time, we are still awaiting bowel movement. Upon my evaluation, he has no complaints at this time. OBJECTIVE: VITAL SIGNS: He has been hypertensive. Medications have been adjusted to account for this. ABDOMEN: Soft. No tenderness. No distension, guarding or rigidity. ASSESSMENT AND PLAN: As documented in daily progress noted. Continue care as ordered. Continue to monitor. Awaiting bowel function.
[2017-08-01] MEDS: Acetaminophen 500 MG TAB PO SCH (05:41)
[2017-08-01] MEDS: Ibuprofen 600 MG TAB PO SCH (05:41)
[2017-08-01] MEDS: Oxazepam 10 MG CAP PO SCH (05:41)
[2017-08-01] MEDS: Mometasone/Formoterol 120 PUFF INHALER INH SCH (07:57)
[2017-08-01] MEDS: predniSONE 20 MG TAB PO SCH (08:40)
[2017-08-01] MEDS: Aspirin 81 mg Enteric Coated Tablet PO SCH (08:41)
[2017-08-01] MEDS: Losartan/Hydrochlorothiazide 100 mg/25 mg Tablet PO SCH (08:41)
[2017-08-01] MEDS: Amoxicillin/Potassium Clav 875 MG TAB PO SCH (08:41)
[2017-08-01] MEDS: Citalopram 20 MG TAB PO SCH (08:42)
[2017-08-01] MEDS: Folic Acid 1 MG TAB PO SCH (08:42)
[2017-08-01] MEDS: buPROPion HCl 100 MG TAB PO SCH (08:42)
[2017-08-01 12:26] VITALS: BP 158/88
[2017-08-01] MEDS: Metoprolol Tartrate 100 MG TAB PO SCH (12:28)
[2017-08-01 12:30] VITALS: TEMP 97.8
--- NOTE | 2017-08-01 13:18 | DIS ---
DATE OF ADMISSION: 07/28/2017 DATE OF DISCHARGE: 08/01/2017 ADMITTING PHYSICIAN: Pedro Mccarthy DO ADMITTING DIAGNOSES: 1. Acute appendicitis with perforation. 2. Periappendiceal abscess. DISCHARGE DIAGNOSES: 1. Acute appendicitis with perforation. 2. Periappendiceal abscess. OPERATIONS PERFORMED: Laparoscopic appendectomy and drainage of periappendiceal abscess on 8. Please see separate dictation for operative report. HISTORY AND HOSPITAL COURSE: A 56-year-old man presented with abdominal pain of 2-day duration. Clinical and radiographic examinations were consistent with acute appendicitis with perforation. The patient was taken to the operating room for laparoscopic appendectomy. Operative findings were cons istent with a ruptured appendix with periappendiceal abscess. Following the uneventful laparoscopic appendectomy and drainage of abscess, the patient was admitted to surgical floor where he remained at the time of discharge. He had postoperative acute respiratory failure secondary to acute COPD exace rbation. Once that resolved, the patient was extubated and transferred to the general floor where he remained at the time of discharge. Postoperative course has been essentially uneventful except for protracted nausea yesterday which prohibited his discharge. Today, the patient is ambulating with mi nimum difficulty. The pain is adequately controlled on oral analgesics. He recorded one bowel movem ent yesterday. He has remained hemodynamically stable and afebrile through this admission. Abdomina l examination reveals intact wounds which are healing. He has no gross peritoneal signs on examinati on. The patient will be discharged home today with the following instructions: 1. He sees me in the Surgery [facility] in 2 weeks. 2. He is to call me with any questions or problems including exacerbation of abdominal pain, fever i n excess of 101 degrees Fahrenheit, or any intolerance to oral intake. 3. He is to avoid weightlifting in excess of 20 pounds until he has been released by me. 4. He is given a prescription for tramadol 50 mg #30 to be taken 1-2 p.o. q.6. p.r.n. pain with no r efills. 5. He is also given a prescription for Augmentin 875 mg #14 to be taken 1 p.o. b.i.d. until all take n. 6. The patient has been advised to refrain from alcoholism or seek help at the office. He is to fol low up with his primary care physician with regards to his hypertension. He is to resume all prehosp ital medications as prescribed by his primary care physician. Above instructions given to the patient in the presence of his nurse. He indicates understanding of information given. I answered his questions. The patient has expressed gratitude for the care renott to him during this hospitalization and surgery.
[2017-08-03] MEDS ORDERED: predniSONE 5 MG TAB PO SCH (09:00)
--- NOTE | 2017-09-24 22:02 | EKG ---
Test Reason : Blood Pressure : / mmHG Vent. Rate : 074 BPM Atrial Rate : 074 BPM P-R Int : 144 ms QRS Dur : 084 ms QT Int : 478 ms P-R-T Axes : 041 043 003 degrees QTc Int : 530 ms Sinus rhythm with occasional Premature ventricular complexes Low voltage QRS Prolonged QT Abnormal ECG Confirmed by CARLIN VIZCARRA M.D. ([id number]) on 09/24/2017 10:02:08 PM Referred By: Confirmed By:CARLIN VIZCARRA M.D.
== END 2017-08-01 12:30 | disposition home or self-care (01) | DRG 338 ==
LOC: ERS 03:39 → CCU 10:36 → SURG A 07-29 11:05
PROVIDERS: ADMIT Surgery; ATTEND Surgery
PROC: 0DTJ4ZZ Resection of Appendix, Percutaneous Endoscopic Approach (ICD-10-PCS; principal; 2017-07-28)
PROC: 5A1935Z Respiratory Ventilation, Less than 24 Consecutive Hours (ICD-10-PCS; 2017-07-28)
PROC: 0BH17EZ Insertion of Endotracheal Airway into Trachea, Via Natural or Artificial Opening (ICD-10-PCS; 2017-07-28)
DX: K35.3 Acute appendicitis with localized peritonitis (principal); J96.01 Acute respiratory failure with hypoxia; J44.1 Chronic obstructive pulmonary disease with (acute) exacerbation; E66.9 Obesity, unspecified; I10 Essential (primary) hypertension; F32.9 Major depressive disorder, single episode, unspecified; F17.210 Nicotine dependence, cigarettes, uncomplicated; Z68.31 Body mass index [BMI] 31.0-31.9, adult; Z79.899 Other long term (current) drug therapy
CPT/HCPCS: 36415; 71045; 74177; 80048; 80053; 81003; 81015; 82553; 82805; 83690; 83735; 84100; 84484; 85014; 85018; 85025; 85049; 85610; 85730; 88304; 93005; 93010; 93306; 94002; 94640; 94664; 96365; 96367; 96375; J2270; C1751; J0360; J0744; J1100; J1170; J1644; J1885; J2001; J2250; J2405; J2543; J2550; J2704; J2765; J2920; J3010; J3480; J7050; J7506; J7620; S0020

== ENCOUNTER 2017-08-15 13:15 | Inpatient (IN) | payer MEDICARE ==
[~2017-08-15 13:15] MED LIST: ISOVUE-370 76%-LOCM 1 ML ONE; Iopamidol 370 76% 50 ML VIAL FS ONE
[2017-08-15 13:52] LABS: Hemoglobin 16.7 g/dL (14.0-18.0); Mean Corpuscular HGB CONC 31.8 g/dL (32.0-36.0); Mean Corpuscular Hemoglobin 32.5 pg (27.0-31.0); Mean Platelet Volume 10.6 fL (7.4-10.4); Platelet Count 198 thou/uL (130-400); Red Blood Cell (RBC) Count 5.13 mill/uL (4.70-6.10); White Blood Cell (WBC) Count 19.2 thou/uL (4.8-10.8)
[2017-08-15 14:07] LABS: Band 1 % (5-11); Large Platelets SLIGHT; Lymphocytes 5 % (21-51); MDiff Complete? YES; Macrocytosis SLIGHT = 6-15 cells (100X) (0-5/hpf); Monocytes 2 % (0-10); Neutrophil 87 % (42-75); PLT Morphology Comment Appears Adequate; Polychromasia SLIGHT = 2-3 cells (100X) (0-2/hpf); Reactive Lymphocytes 5 % (0-10)
[2017-08-15 14:19] LABS: ALT (SGPT) 22 U/L (8-55); AST (SGOT) 15 U/L (5-34); Albumin 3.9 g/dL (3.5-5.0); Alkaline Phosphatase 98 U/L (40-150); Anion Gap 14 mmol/L (10-20); BUN (Urea Nitrogen) 12 mg/dL (8.4-25.7); Bilirubin, Total 1.6 mg/dL (0.2-1.2); Calc. Creatinine Clearance 0 mL/min (70-130); Calcium 9.8 mg/dL (7.8-10.44); Carbon Dioxide 26 mmol/L (22-29); Chloride 97 mmol/L (98-107); Estimated GFR-MDRD 69; Globulin 3.7 g/dL (2.4-3.5); Glucose 130 mg/dL (70-105); Lipase 14 U/L (8-78); Potassium 3.4 mmol/L (3.5-5.1); Protein, Total 7.6 g/dL (6.0-8.3); Sodium 134 mmol/L (136-145)
[2017-08-15] MEDS ORDERED: Piperacillin/Tazobactam 4.5 GM in Sodium Chloride 0.9% 100 ML IVPB SCH (16:00)
[2017-08-15 16:51] LABS: Bilirubin Negative (Negative); Blood, Urine Negative (Negative); Clarity CLEAR (Clear); Glucose, Urine (Dipstick) Negative (Negative); Leukocyte Negative (Negative); Nitrite Negative (Negative); Protein, Urine (Dipstick) Negative (Neg-Trace); Specific Gravity, Urine 1.007 (1.002-1.036)
[2017-08-15 18:23] LABS: Lactic Acid 1.6 mmol/L (0.5-2.2)
[2017-08-15] MEDS ORDERED: Acetaminophen 500 MG TAB ONE (18:40)
--- NOTE | 2017-08-15 19:12 | CT ---
CT ABDOMEN AND PELVIS WITH CONTRAST 08/15/17 HISTORY: Abdominal pain. Appendix removed several weeks ago. COMPARISON: CT abdomen and pelvis 07/28/17. FINDINGS: There is a nodule in the left lower lobe measuring 8 mm and another one measuring 4 mm. These were di scussed on prior exams and recommendations given. There is callus formation at multiple left sided he aling rib fractures. Diffuse hepatic steatosis. A few calcified granulomas in the spleen. Normal prox imal small bowel rotation. Duodenal diverticulum second portion duodenum. The pancreas is unremarkable as well as the adrenal glands. Calculus is noted interpolar right kidney similar to the comparison examination. There is some inflammation along the right mid ureter. There is extensive thickening inflammation involving the cecum and terminal ileum. There is a small f ocus of extraluminal contrast on the posterior margin of the cecum, series 2, image 75. There are oth er smaller interconnecting foci. These all appear to be collapse with small sinus tracts. The amount of thickening of the cecum is increasing from the comparison examination. The urinary bladder is unremarkable. IMPRESSION: Marked thickening of the cecum greater than the comparison examination where the patient had acute ap pendicitis. There is also what appears to be small curvilinear areas of extraluminal contrast concern ing for small sinus tracts. No large drainable collection is apparent. There also appears to be a sma ll area of fat necrosis in the expected area of prior appendectomy. Code T POS: [id number]
[2017-08-15] MEDS ORDERED: Ondansetron HCl/PF 4 MG/2 ML Vial IVP PRN ×2 (19:42→22:48)
[2017-08-15] MEDS ORDERED: Acetaminophen 325 MG TAB PO PRN (19:42)
[2017-08-15] MEDS ORDERED: Ondansetron ODT 4 MG TAB SL PRN (19:42)
[2017-08-15] MEDS ORDERED: Morphine 5 MG/ML SYRINGE SLOW IVP PRN (19:43)
[2017-08-15] MEDS ORDERED: Sodium Chloride 0.9% 1,000 ML IV SCH (22:30)
[2017-08-15] MEDS: Piperacillin/Tazobactam 3.375 GM in Sodium Chloride 0.9% 100 ML IVPB SCH (23:04)
[2017-08-15 23:56] VITALS: BMI 32.5
[2017-08-15] MEDS ORDERED: Piperacillin/Tazobactam 3.375 GM in Sodium Chloride 0.9% 100 ML IVPB SCH (23:59)
[2017-08-16] MEDS: D5 1/2 NS w/20 mEq KCL 1,000 ML IV SCH ×2 (01:09→08:17)
[2017-08-16 04:26] LABS: #Eosinphils 0.1 thou/uL (0.0-0.7); #Lymphocytes 1.6 thou/uL (1.20-3.40); #Monocytes 1.6 thou/uL (0.11-0.59); #Neutrophils 11.8 thou/uL (1.40-6.50); %Basophils 0.1 % (0.0-1.0); %Eosinophils 0.5 % (0.0-10.0); %Lymphocytes 10.4 % (21.0-51.0); %Monocytes 10.7 % (0.0-10.0); %Neutrophils 78.3 % (42.0-75.0); Hemoglobin 14.5 g/dL (14.0-18.0); Mean Corpuscular HGB CONC 33.4 g/dL (32.0-36.0); Mean Corpuscular Hemoglobin 34.2 pg (27.0-31.0); Mean Platelet Volume 10.6 fL (7.4-10.4); Platelet Count 175 thou/uL (130-400); Red Blood Cell (RBC) Count 4.25 mill/uL (4.70-6.10); White Blood Cell (WBC) Count 15.1 thou/uL (4.8-10.8)
[2017-08-16 04:39] LABS: Anion Gap 10 mmol/L (10-20); BUN (Urea Nitrogen) 10 mg/dL (8.4-25.7); Calc. Creatinine Clearance 137 mL/min (70-130); Calcium 8.6 mg/dL (7.8-10.44); Carbon Dioxide 27 mmol/L (22-29); Chloride 105 mmol/L (98-107); Estimated GFR-MDRD 83; Glucose 158 mg/dL (70-105); Potassium 3.6 mmol/L (3.5-5.1); Sodium 138 mmol/L (136-145)
[2017-08-16] MEDS: Piperacillin/Tazobactam 3.375 GM in Sodium Chloride 0.9% 100 ML IVPB SCH ×2 (05:21→11:39)
--- NOTE | 2017-08-16 15:04 | HP ---
DATE OF SERVICE: 08/16/2017 HISTORY OF PRESENT ILLNESS: This is a 57-year-old man who is postoperative day #19 status post lapar oscopic appendectomy for ruptured appendix. The patient presented to the emergency department last n ight with recurrent right-sided abdominal pain. He denied any fevers or chills. He has been tolerat ing diet and having bowel movements. He report one episode of diarrhea prior to the onset of abdomin al pain. PAST MEDICAL HISTORY: Pertinent for chronic alcoholism, although the patient reports he has not had any alcohol since last discharge. Other pertinent past medical history includes essential hypertensi on and chronic depression. SURGICAL HISTORY: Significant for most recent laparoscopic appendectomy of which the patient is post op day #19. He has also status post bilateral shoulder arthroplasties. SOCIAL HISTORY: The patient smokes 1 pack of cigarettes per day and he has done so for over 40 years and he used to drink a 2-pack of beer a day. He reports he has not had any alcohol or smoked cigare ttes since last discharge. He denies any illicit drug abuse. FAMILY HISTORY: Noncontributory for his presentation. PREHOSPITALIZATION MEDICATIONS: Includes Wellbutrin 200 mg p.o. daily, Celexa 40 mg p.o. daily, losa rtan/hydrochlorothiazide combination 100/25 p.o. daily, metoprolol 100 mg p.o. b.i.d. and Remeron 30 mg p.o. at bedtime. He takes aspirin 81 mg p.o. daily. The patient also takes prazosin 2 mg p.o. at bedtime. ALLERGIES: Patient denies any known drug allergies. Ten point review of systems essentially unremarkable except for as stated in past medical history and chief complaint. PHYSICAL EXAMINATION: GENERAL: This reveals a 57-year-old normally developed man who is otherwise coherent and interactive and appears stated age. The patient is alert and oriented x3, appears to be in no acute distress at the time of my evaluation. VITAL SIGNS: Includes blood pressure 125/78, pulse is 78, respiratory rate 14, maximum temperature s josiane admission is 99.5 degrees Fahrenheit, oxygen saturation 96% on room air. HEENT: Examination reveals normocephalic and atraumatic. Pupils are equal, round, and reactive to l ight and accommodation. Extraocular muscles are intact bilaterally. He has no sclerae icterus prese nt. HEART: Reveals regular rate and rhythm, no murmurs or gallops auscultated. LUNGS: Clear to auscultation bilaterally. Breathing is regular and unlabored. ABDOMEN: Soft with moderate right lower quadrant tenderness to palpation. He has no gross rebound t enderness on examination. NEUROLOGIC: Examination reveals no focal deficits present. LABORATORY DATA AND IMAGING DATA: Laboratory findings today include CBC with 15,100 white blood cell s, hemoglobin is 14.5, hematocrit is 43.5, and platelet count is 175,000. White blood cell count yes terday was 19,200. Differential counts are as follows, 87% segmented neutrophils, 1 band, 5 lymphocy jae, and 2 monocytes. Metabolic profile today; sodium 138, potassium is 3.6, chloride is 105, bicarb zulma 27, BUN 10, creatinine 0.94, glucose 158. I have personally reviewed the CT scan of the abdome n and pelvis which is remarkable for some thickening and inflammation of the cecum and terminal ileum . There is no drainable fluid collection or pneumoperitoneum present. IMPRESSION: 1. Postoperative day #19 status post laparoscopic appendectomy for gangrenous perforated appendix. 2. Essential hypertension. 3. History of chronic depression. PLAN: Continue with antibiotic therapy. Diet will be provided as tolerated. Above findings and plan discussed with the patient who indicates understanding of information given. I have advised him that there is no acute surgical indication at this time.
[2017-08-16] MEDS: Acetaminophen 500 MG TAB PO SCH ×2 (15:22→20:20)
[2017-08-16] MEDS: metroNIDAZOLE 500 MG TAB PO SCH ×2 (15:25→20:20)
[2017-08-16] MEDS: Ibuprofen 600 MG TAB PO PRN (17:33)
[2017-08-16] MEDS ORDERED: Cipro 250 MG TAB PO SCH (20:00)
[2017-08-16] MEDS: Cipro 250 MG TAB PO SCH (20:20)
[2017-08-16] MEDS: traMADol HCl 50 MG TAB PO PRN (20:20)
[2017-08-16] MEDS: Famotidine 20 MG TAB PO SCH (20:20)
[2017-08-17] MEDS: Acetaminophen 500 MG TAB PO SCH ×4 (01:55→21:29)
[2017-08-17] MEDS: traMADol HCl 50 MG TAB PO PRN ×2 (04:12→21:28)
[2017-08-17] MEDS: Cipro 250 MG TAB PO SCH ×2 (05:52→21:29)
--- NOTE | 2017-08-17 06:26 | PRG ---
DATE OF SERVICE: 08/16/2017 SUBJECTIVE: This is a 57-year-old male postop day #19 from status post laparoscopic appendectomy for ruptured appendix. He does complain of increased abdominal pain with inflammation of the cecum and terminal ileum. OBJECTIVE: Physical exam, most of the vital signs have been stable. ASSESSMENT AND PLAN: Continue care as noted in the daily progress note. Continue to monitor. Disch arge disposition is pending.
[2017-08-17] MEDS ORDERED: FLU VACC QS2017-18 36 mo. & older 0.5 ML SYRINGE IM ONE (09:00)
[2017-08-17] MEDS: metroNIDAZOLE 500 MG TAB PO SCH ×3 (09:39→21:29)
[2017-08-17] MEDS: Famotidine 20 MG TAB PO SCH ×2 (09:39→21:30)
--- NOTE | 2017-08-17 10:25 | PRG ---
DATE OF SERVICE: 08/17/2017 SUBJECTIVE: Mr. Branch is a 57-year-old man, who presented with abdominal pain approximately 19 days following an uneventful laparoscopic appendectomy. CT scan of the abdomen and pelvis revealed inflammation around the operative site and no drainable fl uid collection present. The patient was placed on IV antibiotics. Today, he reports 2/10 abdominal pain. He has some nausea, but has not had any emesis. He passes fl atus, has not had any bowel movement. Denies any fevers or chills. OBJECTIVE: VITAL SIGNS: This morning includes blood pressure 146/99, pulse is 80 and stable, respiratory rate i s 18, maximum temperature in the last 24 hours is 98.4 degrees Fahrenheit, oxygen saturation is 97% o n room air. HEENT: Reveals normocephalic and atraumatic. HEART: Reveals regular rate and rhythm, no murmurs or gallops auscultated. LUNGS: Clear to auscultation bilaterally. Breathing regular and unlabored. ABDOMEN: Soft, nontender and nondistended. Incisional scars are intact and healed. Clearly, patien t has no gross rebound tenderness present. IMPRESSION: Postoperative abdominal pain with inflammation in the operative site. The patient is he modynamically stable. PLAN: Continue antibiotic therapy. The patient will be discharged home following return of bowel fu nction, marked by a bowel movement. He indicates understanding of information provided.
[2017-08-17] MEDS ORDERED: Bisacodyl 10 MG SUPP PR SCH (15:00)
[2017-08-17] MEDS: Senokot S 8.6-50 MG TAB PO SCH (21:29)
[2017-08-18] MEDS: Acetaminophen 500 MG TAB PO SCH ×4 (02:41→20:55)
[2017-08-18] MEDS: Cipro 250 MG TAB PO SCH (06:36)
[2017-08-18] MEDS: Senokot S 8.6-50 MG TAB PO SCH ×3 (09:37→20:59)
[2017-08-18] MEDS: Famotidine 20 MG TAB PO SCH ×2 (09:54→21:00)
[2017-08-18] MEDS: metroNIDAZOLE 500 MG TAB PO SCH (09:54)
--- NOTE | 2017-08-18 11:36 | RAD ---
ABDOMEN 1 VIEW: Date: 08/18/17 HISTORY: Ileus. FINDINGS/IMPRESSION: The bowel gas pattern is unremarkable. The small bowel loops do not appear abnormally dilated. Air an d fecal material is seen in the colon. No suspicious calcifications are seen. There are degenerative changes in the spine. POS: [facility]
--- NOTE | 2017-08-18 12:00 | PRG ---
DATE OF SERVICE: 08/18/2017 SUBJECTIVE: Mr. Branch is awake and alert today. He reports adequate pain control. He complains of recurrent nausea and had two bouts of emesis overnight. This morning, he is nauseated to point he is afraid of eating. He had had two small bowel movements over the last 24 hours. Denies any fevers or chills. OBJECTIVE: VITAL SIGNS: Today includes blood pressure 149/103, pulse 96, respiratory rate is 18, maximum temper ature in the last 24 hours is 98.6 degrees Fahrenheit, oxygen saturation 95% on room air. HEENT: Reveals normocephalic and atraumatic. Pupils equal, round, reactive to light and accommodati on. HEART: Reveals regular rate and rhythm. No murmurs or gallops auscultated. CHEST: Clear to auscultation bilaterally. Breathing regular and unlabored. ABDOMEN: Soft, nontender, nondistended. Her incisions are clean and healed. No erythema or indurat ion. IMPRESSION: 1. Postoperative day #21, status post laparoscopic appendectomy for gangrenous appendix with rupture . 2. Resolving enterocolitis. PLAN: 1. I suspect that the recurrent nausea is likely secondary to either ciprofloxacin or metronidazole or combination there off. 2. Antibiotic therapy will be changed to Augmentin, which the patient tolerated in time past. We wi ll continue with general diet and activity as tolerated. The patient will be discharged home tomorro w if he stays nausea free.
[2017-08-18] MEDS: Ondansetron ODT 4 MG TAB PO PRN ×2 (14:02→21:09)
[2017-08-18] MEDS: Amoxicillin/Potassium Clav 875 MG TAB PO SCH (20:59)
[2017-08-18] MEDS: Ibuprofen 600 MG TAB PO PRN (21:02)
[2017-08-19] MEDS: Acetaminophen 500 MG TAB PO SCH ×2 (02:58→08:20)
[2017-08-19 04:17] LABS: #Basophils 0.1 thou/uL (0.0-0.2); #Eosinphils 0.1 thou/uL (0.0-0.7); #Lymphocytes 2.2 thou/uL (1.20-3.40); #Monocytes 1.5 thou/uL (0.11-0.59); #Neutrophils 10.4 thou/uL (1.40-6.50); %Basophils 0.4 % (0.0-1.0); %Eosinophils 0.9 % (0.0-10.0); %Lymphocytes 15.7 % (21.0-51.0); %Monocytes 10.2 % (0.0-10.0); %Neutrophils 72.8 % (42.0-75.0); Hemoglobin 16.2 g/dL (14.0-18.0); Mean Corpuscular HGB CONC 32.7 g/dL (32.0-36.0); Mean Corpuscular Hemoglobin 33.8 pg (27.0-31.0); Mean Platelet Volume 10.6 fL (7.4-10.4); Platelet Count 258 thou/uL (130-400); RBC Distribution Width 12.1 % (11.5-14.5); Red Blood Cell (RBC) Count 4.79 mill/uL (4.70-6.10); White Blood Cell (WBC) Count 14.2 thou/uL (4.8-10.8)
[2017-08-19 04:36] LABS: Anion Gap 9 mmol/L (10-20); BUN (Urea Nitrogen) 5 mg/dL (8.4-25.7); Calc. Creatinine Clearance 140 mL/min (70-130); Calcium 9.6 mg/dL (7.8-10.44); Carbon Dioxide 35 mmol/L (22-29); Chloride 102 mmol/L (98-107); Estimated GFR-MDRD 85; Glucose 108 mg/dL (70-105); Magnesium 2.1 mg/dL (1.6-2.6); Phosphorus 4.1 mg/dL (2.3-4.7); Potassium 3.5 mmol/L (3.5-5.1); Sodium 142 mmol/L (136-145)
[2017-08-19] MEDS ORDERED: Potassium Chloride 40 MEQ in Sodium Chloride 0.9% 250 ML 250 ML IVPB SCH (05:00)
[2017-08-19] MEDS: Senokot S 8.6-50 MG TAB PO SCH (08:19)
[2017-08-19] MEDS: Amoxicillin/Potassium Clav 875 MG TAB PO SCH (08:19)
[2017-08-19] MEDS: Famotidine 20 MG TAB PO SCH (08:19)
[2017-08-19 11:38] VITALS: BP 148/79; TEMP 98.2
--- NOTE | 2017-08-19 11:56 | PRG ---
DATE OF SERVICE: 08/19/2017 ATTENDING PHYSICIAN: Dr. Pedro Mccarthy. SUBJECTIVE: Mr. Branch is a 57-year-old male, who is status post laparoscopic appendectomy with subsequent return to ER with abdominal pain. CT scan of the abdomen revealed inflammation around the operative site and no drainable fluid collection. He was admitted to the hospital and started on IV antibiotics. He was then transitioned to Cipro and Flagyl oral. Due to nausea when taking Flagyl, Cipro and Flagyl were stopped, and he was transitioned over to Augmentin , which he has previously taken without nausea. Overnight, he had bouts of asymptomatic bradycardia. EKG showed sinus rhythm with PVCs and prolonged QT. Zofran has been stopped. SUBJECTIVE: Mr. Branch is ambulatory on the floor without symptoms related to bradycardia. OBJECTIVE: VITAL SIGNS: Temperature 98.4, pulse 52, respirations 16, O2 saturation 97%, blood pressure 138/79. HEENT: Atraumatic, normocephalic. PULMONARY: Bilateral breath sounds clear. No respiratory distress. CARDIOVASCULAR: Bradycardia, rate 50s to 60s. ABDOMEN: Soft, nontender, nondistended. No abdominal pain to palpation. No masses. EXTREMITIES: Moves all extremities. Ambulatory without assistance. ASSESSMENT: 1. Postoperative day #22, status post laparoscopic appendectomy for gangrenous appendix with rupture. 2. Resolving enterocolitis. 3. Asymptomatic sinus bradycardia. 4. Hypokalemia PLAN: 1. Zofran has been stopped. We will hold Zofran indefinitely as EKG showed prolonged QT likely related to concurrent use of Zofran and Cipro. 2. Anticipate DC home later today if heart rate returns to normal and patient remains asymptomatic. Patient was seen and examined with Dr. Mccarthy, who agrees with the assessment and plan. [facility]
--- NOTE | 2017-08-19 13:40 | DIS ---
DATE OF ADMISSION: 08/15/2017 DATE OF DISCHARGE: 08/19/2017 ADMITTING PHYSICIAN: Dr. Dominic Molina. DISCHARGING PHYSICIAN: Dr. Pedro Mccarthy. REASON FOR HOSPITALIZATION: Abdominal pain status post laparoscopic appendectomy. HOSPITAL DIAGNOSES: 1. Enterocolitis. 2. Asymptomatic sinus bradycardia. 3. Hypokalemia. DISCHARGE CONDITION: Good. DISPOSITION: Home. MEDICATIONS: Augmentin 875 mg q.12 hours x10 days. The patient may resume all other home medication s. THERAPY: None. DIET: Regular. FOLLOWUP: Dr. Mccarthy in [address] scan of abdomen. BRIEF HISTORY OF HOSPITALIZATION: Mr. Branch is a 57-year-old male who is 22 days status post laparo scopic appendectomy for gangrenous appendix. He returned to the hospital 4 days ago with abdominal p ain. CT scan at that time revealed inflammation around the operative site and no drainable fluid col lection. He was admitted to the hospital and started on IV antibiotics. He was then transitioned to Cipro and Flagyl orally. Due to nausea when taking Flagyl, Cipro and Flagyl were stopped and he was transitioned to Augmentin. He has previously taken Augmentin without nausea. He did experience mykel e asymptomatic sinus bradycardia. EKG showed prolonged QT interval. This was thought likely to be f rom concurrent administration of Zofran and fluoroquinolones. Both Zofran and Cipro were stopped. H is heart rate subsequently returned to normal baseline. At the time of discharge, his heart rate is between 70 and 80 beats per minute. He has remained asymptomatic. He is ambulatory around the unit with no dizziness, chest pain, shortness of breath or syncope. He was evaluated on the day of discha rge by Dr. Mccarthy and cleared for discharge home. He is to follow up with Dr. Mccarthy in 2 weeks with r epeat CT scan. He was given followup information, discharge instructions, and strict return precauti ons. He verbalized understanding. The patient was seen and examined with Dr. Mccarthy who agrees with the assessment and plan for discharg e.
--- NOTE | 2017-08-22 16:47 | EKG ---
Test Reason : Blood Pressure : / mmHG Vent. Rate : 068 BPM Atrial Rate : 068 BPM P-R Int : 142 ms QRS Dur : 074 ms QT Int : 452 ms P-R-T Axes : 058 -12 056 degrees QTc Int : 480 ms Sinus rhythm with frequent Premature ventricular complexes Cannot exclude Inferior infarct , age undetermined Low voltage QRS Prolonged QT Abnormal ECG Confirmed by SOREN MARISCAL ([id number]) on 08/22/2017 4:47:30 PM Referred By: Confirmed By:SOREN MARISCAL
--- NOTE | 2017-08-24 07:37 | PQF ---
MANFRED ARAUZKAMARI [id number] SURG A- [id number] CLINICAL DOCUMENTATION CLARIFICATION FORM: POST DISCHARGE Addendum to original discharge summary date: DATE: 08/24/2017 ATTN: Dr. Mccarthy Please exercise your independent, professional judgment in responding to the clarification form. Clinical indicators are provided on the bottom of this form for your review Please check appropriate box(s): [ ] Enterocolitis is a postoperative complication due to recent surgery [ X ] Enterocolitis is not a postoperative complication due to recent surgery [ ] Other diagnosis (please specify) [ ] Unable to determine In addition, please specify: Present on Admission (POA): [ ] Yes [ ] No [ ] Unable to determine CLINICAL INDICATORS - SIGNS / SYMPTOMS / LABS (per H&P/Progress Notes) Recurrent right sided abdominal pain. CT scan showed inflammation around the operative site and no drainable fluid collection. Enterocolitis. RISK FACTORS (per H&P) Status post laparoscopic appendectomy (per H&P post op day #19 on admission). TREATMENT: (per ED/Progress Notes) IV Zosyn. Transitioned to oral Cipro and Flagyl. Oral Augmentin. IV Fluids (This form is maintained as a part of the permanent medical record) 2014 [employer]. All Rights Reserved Silvia [email or web address] [phone] Note to Provider: In responding to this query, you must exercise independent clinical judgment. The fact that a query is placed does not imply that any particular answer is desired or expected. Please document your response/ clarification to this query in the patients medical record. Your response should clarify and resolve conflicting, ambiguous, or incomplete information in the health record regarding any significant reportable condition or procedure. ( 2008 [facility] Practice Brief, pg. 5) [employer] does not endorse or approve queries developed by the hospital or its agents and issued through the [employer] Monitor software that are not in accordance with the rules or regulations promulgated by the Centers for Medicare and Medicaid (CMS), Office of [employer] (OIG), or US Department of Health and Human Services and AHIPA 2008 Practice Brief Managing an Effective Query Process or its updates (Practice Brief). [facility]
== END 2017-08-19 15:05 | disposition home or self-care (01) | DRG 392 ==
LOC: ERS 13:15 → SURG A 17:44 → ERS 18:45
PROVIDERS: ADMIT Surgery; ATTEND Surgery
DX: K52.9 Noninfective gastroenteritis and colitis, unspecified (principal); I45.81 Long QT syndrome; E87.6 Hypokalemia; R00.1 Bradycardia, unspecified; F17.210 Nicotine dependence, cigarettes, uncomplicated; I10 Essential (primary) hypertension; F32.9 Major depressive disorder, single episode, unspecified; Z79.82 Long term (current) use of aspirin; F10.20 Alcohol dependence, uncomplicated; Z79.899 Other long term (current) drug therapy; T45.0X5A Adverse effect of antiallergic and antiemetic drugs, initial encounter; T36.8X5A Adverse effect of other systemic antibiotics, initial encounter; R11.2 Nausea with vomiting, unspecified; T37.8X5A Adverse effect of other specified systemic anti-infectives and antiparasitics, initial encounter; Y92.239 Unspecified place in hospital as the place of occurrence of the external cause
CPT/HCPCS: 36415; 36416; 74018; 74177; 80048; 80053; 81003; 83605; 83690; 83735; 84100; 85025; 87040; 87086; 90471; 90682; 93005; 93010; 94640; 96361; 96365; A4216; G0008; J2270; J2405; J2543; J3480; J7050; J7620; Q0162; Q2036

== ENCOUNTER 2018-07-01 14:47 | Outpatient (CLI) | payer MEDICARE ==
--- NOTE | 2018-07-01 16:04 | RAD ---
TWO VIEW CHEST: History: Shortness of breath. Comparison: 07-17-17 two view exam. FINDINGS: Elevated right hemidiaphragm appears stable. No evidence of infiltrate or effusion. Vascular markings normal. Heart size is upper normal and stable. Osseous structures unremarkable. IMPRESSION: No acute process apparent. POS: [facility]
== END 2018-07-01 14:48 | disposition home or self-care (01) ==
LOC: RAD-FRANK 14:47
PROVIDERS: ATTEND Nurse Practitioner Family
DX: R06.02 Shortness of breath (principal)
CPT/HCPCS: 71046

== ENCOUNTER 2018-07-11 05:44 | Observation (INO) | payer MEDICARE ==
[2018-07-11] MEDS ORDERED: Aspirin 325 MG TAB ONE (05:59)
[2018-07-11 06:10] LABS: #Basophils 0.1 thou/uL (0.0-0.2); #Eosinphils 0.2 thou/uL (0.0-0.7); #Lymphocytes 3.3 thou/uL (1.20-3.40); #Monocytes 1.5 thou/uL (0.11-0.59); #Neutrophils 11.7 thou/uL (1.40-6.50); %Basophils 0.3 % (0.0-1.0); %Eosinophils 1.4 % (0.0-10.0); %Lymphocytes 19.4 % (21.0-51.0); %Neutrophils 69.8 % (42.0-75.0); Hemoglobin 20.2 g/dL (14.0-18.0); Mean Corpuscular HGB CONC 32.1 g/dL (32.0-36.0); Mean Corpuscular Hemoglobin 32.3 pg (27.0-31.0); Mean Platelet Volume 10.6 fL (7.4-10.4); Platelet Count 232 thou/uL (130-400); RBC Distribution Width 12.4 % (11.5-14.5); Red Blood Cell (RBC) Count 6.23 mill/uL (4.70-6.10); White Blood Cell (WBC) Count 16.8 thou/uL (4.8-10.8)
[2018-07-11 06:26] LABS: ALT (SGPT) 81 U/L (8-55); AST (SGOT) 33 U/L (5-34); Alkaline Phosphatase 108 U/L (40-150); Anion Gap 15 mmol/L (10-20); BUN (Urea Nitrogen) 18 mg/dL (8.4-25.7); Bilirubin, Total 0.5 mg/dL (0.2-1.2); CK (CPK) 43 U/L (30-200); Calc. Creatinine Clearance 0 mL/min (70-130); Calcium 9.9 mg/dL (7.8-10.44); Carbon Dioxide 30 mmol/L (22-29); Chloride 96 mmol/L (98-107); Estimated GFR-MDRD 55; Globulin 3.4 g/dL (2.4-3.5); Glucose 409 mg/dL (70-105); Potassium 4.2 mmol/L (3.5-5.1); Protein, Total 7.4 g/dL (6.0-8.3); Sodium 137 mmol/L (136-145)
--- NOTE | 2018-07-11 08:27 | RAD ---
ONE VIEW CHEST: History: Dyspnea. Comparison: 07-28-17, 07-01-18 FINDINGS: Normal cardiac silhouette. The pulmonary vessels and hilum are normal. Costophrenic angles are clear. No mass. No consolidation. No pneumothorax or osseous abnormality. IMPRESSION: No acute cardiopulmonary process. POS: [facility]
--- NOTE | 2018-07-11 08:58 | CT ---
PRELIMINARY REPORT/[facility]/EMERGENTY AFTER-HOURS PROCEDURE CT Angiography Chest With Contrast EXAM DATE/TIME: 07/11/2018 6:51 AM CLINICAL HISTORY: 57 years old, male; Pain; Chest pain; Other: Elevated d-dimer; Additional info: Carmen presents to the e d C/O cp and SOB for the past x8 days, worsening around noon yesterday. PT. Reports cp doesn't feel l ange his previous heart attacks. Associated coughing up green phlegm and states he has had trouble urinating due to penile swelling. Notes the pain started as sharp and now feeling achy. Pmhx of x2 mi. TECHNIQUE: Axial computed tomographic angiography images of the chest with intravenous contrast using CTN angiog saima protocol. All CT scans at this facility use at least one of these dose optimization techniques: automated exposure control; mA and/or kV adjustment per patient size (includes targeted exams where dose is matched to clinical indication); or iterative reconstruction. Coronal reformatted images were created and reviewed. MIP reconstructed images were created and reviewed. CONTRAST: 100 ml of ISOVUE 370 administered intravenously. COMPARISON: No relevant prior studies available. FINDINGS: Pulmonary arteries: Fair pulmonary vascular opacification is present. Evaluation of the pulmonary art erial vessels demonstrates no definite CT evidence of pulmonary embolus. The distal vessels are subop timally evaluated. Aorta: Normal. No aortic aneurysm. No aortic dissection. Lungs: Minimal dependent changes are present in the lung bases. 5 mm nodule in the left base. Pleural space: Normal. No pneumothorax. No pleural effusion. Heart: Normal. No cardiomegaly. No pericardial effusion. Spleen: The spleen is mildly prominent. Lymph nodes: Few subcentimeter mediastinal nodes. Bones/joints: Unremarkable. No acute fracture. Soft tissues: Unremarkable. IMPRESSION: 1. Fair pulmonary vascular opacification is present. Evaluation of the pulmonary arterial vessels dem onstrates no definite CT evidence of pulmonary embolus. The distal vessels are suboptimally evaluated . 2. 5 mm nodule in the left base. Followup per Fleishner guidelines listed below. 3. Remainder of findings as described above. [employer] SOCIETY CRITERIA: Please note these follow up guidelines apply to newly detected indeterminate solid nodules in persons 35 years of age or older. Solid nodules: Single solid pulmonary nodule: <6 mm: No follow-up in low risk patients. High risk patients optional follow-up in 12 months. 6-8 mm: Low risk patients, follow-up at 6-12 months, then consider CT at 18-24 months. High risk aleksandra ents follow-up at 6-12 months, then 18-24 months. >8 mm: Low risk patients consider CT at 3 months PET/CT or tissue sampling. High risk patients follow the same as low risk patients. Multiple solid pulmonary nodules: <6 mm: No follow-up in low risk patients. High risk patients optional follow up in 12 months. 6-8 mm: Low risk patients, CT at 3-6 months, then consider CT at 18-24 months. High risk patients fol low up at 6-12 months, then consider CT at 18-24 months. >8 mm: Low risk patients, CT at 3-6 months, then consider CT at 18-24 months. High risk patients CT a t 3-6 months, then at 18-24 months. Low risk patient - Minimal or absent history of smoking or other known risk factors. High risk patient - History of smoking or of other known risk factors. Subsolid nodules: Ground-glass nodule: <6mm: No follow up required. >/=6m: CT at 6-12 months to confirm persistence, then CT every 2 years until 5 years. Part-solid nodule: <6 mm: No follow up required. >/= 6 mm: CT at 3-6 months to confirm persistence. If unchanged and solid component remains <6 mm, annual CT should be performed for 5 years. Multiple nodules: <6 mm: CT at 3-6 months. If stable, consider CT at 2 and 4 years. >/= 6 mm: CT at 3-6 months. Subsequent management based on the most suspicious nodule(s). Thank you for allowing us to participate in the care of your patient. Dictated and Authenticated by: Concepcion Pearson MD 07/11/2018 7:31 AM Central Time ([place] & [place]) FINAL REPORT CT ANGIO CHEST PERFORMED WITH IV CONTRAST ENHANCEMENT WITH 3D RECONSTRUCTIONS: Date: 07/11/18 HISTORY: Chest pain. Elevated D-Dimer. Cough. FINDINGS: The lungs are clear of any infiltrative process. There is a 5.0 mm noncalcified left lower lobe pulmo nary nodule seen on axial image 62, and what appears to be a second similar sized nodule seen on axia l image 66. Review of a 07/17/17 CT examination showed both those nodules are stable. No pleural effu sions are identified. No confluent infiltrative process. No significant mediastinal or hilar adenopathy. Thoracic aorta is normal in caliber. There is suboptimal pulmonary artery opacification obtained. Per ipheral emboli are not excluded on the basis of this examination. I see no CT evidence for pulmonary embolus. The right hemidiaphragm is somewhat elevated and there is atelectatic type change in the right base. Changes appear to be more right middle lobe. Visualized liver parenchyma shows no focal findings, suggestion of some possible fatty change. IMPRESSION: 1. Somewhat limited examination for pulmonary embolus. No CT evidence for pulmonary embolus identifi ed. 2. Some more linear parenchymal change in the right lung base. Specifically, changes are in the righ t middle lobe, more suggestive of atelectasis than an infiltrate. 3. Stable appearance to two left lower lobe pulmonary nodules as compared to the 07/17/17 study. This report is in agreement with the preliminary report issued by [facility]. POS: [facility]
[2018-07-11] MEDS ORDERED: Acetaminophen 325 MG TAB PO PRN (09:47)
[2018-07-11] MEDS ORDERED: HumaLOG 300 UNITS/3 ML VIAL SC PRN (09:53)
[2018-07-11] MEDS ORDERED: Dextrose 50% Abboject 50 ML SYRINGE SLOW IVP PRN (09:53)
[2018-07-11] MEDS ORDERED: Dextrose 5% in Water 1,000 ML IV PRN (09:53)
[2018-07-11 10:13] LABS: Troponin I Less than 0.010 ng/mL (< 0.028)
[2018-07-11] MEDS ORDERED: Iopamidol 370 76% 100 ML VIAL ONE (11:20)
[2018-07-11] MEDS: Sodium Chloride 0.9% 1,000 ML IV SCH ×2 (11:41→16:47)
[2018-07-11] MEDS ORDERED: HumaLOG 300 UNITS/3 ML VIAL ONE (13:06)
[2018-07-11 16:03] VITALS: BMI 35.2
--- NOTE | 2018-07-11 16:48 | HP ---
CHIEF COMPLAINT: Chest pain. HISTORY OF PRESENT ILLNESS: This patient is a 57-year-old male with a history of significant smoking. The patient reports that 8 days ago he saw his PCP for cough. He follows at [facility] in [place]. He says he had a negative chest x-ray at that time. He was diagnosed with bronchitis, given antibiotics and steroids. He reports that his breathing has steadily gotten worse and ultimately started developing some chest pain. Initially, it was in the left parasternal area and was described as feeling like a "hot poker." It subsequently transformed into more of a dull ache across the anterior chest, which only bothers him now when he inhales. He is continuing to feel generally short of breath and he has cough that is productive of a discolored, foul-tasting sputum. He reports this has been going on for couple of weeks total. He does report that he has had both fevers and chills at home. REVIEW OF SYSTEMS: Notable for some dysphagia. The patient reports he feels like both food and liquids stick in his throat and occasionally will cause him some choking and coughing. He also has some wart-like lesions on his hands. All other systems were reviewed, and all pertinent positives and negatives noted in the history of present illness. The patient has reported some discomfort at the tip of the penis, which exacerbated by attempts of voiding. PAST MEDICAL HISTORY: 1. COPD. 2. Hypertension. 3. Neuropathy of his lower extremities. 4. Anxiety. 5. Depression. 6. PTSD. 7. Polycythemia vera. PAST SURGICAL HISTORY: Appendectomy. FAMILY HISTORY: Father was killed. His mother of an [place] in her 60s. SOCIAL HISTORY: The patient drinks about 2 beers per day. He has smoked a pack a day for many years, but cut down to about 3 cigarettes per day over the past month. He denies drugs. He is single. He says he has no surrogate decision maker and that we should do whatever we feel is necessary. He is full code. He does have a sister in regional [facility] for respiratory and complex care, but reports that she is raising 2 young grandchildren and is therefore preoccupied. ALLERGIES: NONE. CURRENT MEDICATIONS: 1. Metoprolol 100 mg b.i.d. 2. Ventolin inhaler 2 puffs p.r.n. He reports he is out of this. 3. Hyzaar 100 mg-25 mg one p.o. daily. 4. Doxycycline 100 mg b.i.d. 5. Gabapentin 100 mg b.i.d. 6. Hydralazine 50 mg b.i.d. PHYSICAL EXAMINATION: VITAL SIGNS: BP is 111/76, pulse 87, respirations 18, O2 saturation 99% on room air. GENERAL APPEARANCE: Age-appropriate male. He does not appear to be in any significant distress. He is not wearing oxygen. HEENT: PERRL. No OP lesions. NECK: Supple and symmetric with no lymphadenopathy, JVD, or carotid bruits. HEART: Regular rate and rhythm without murmurs, gallops, or rubs. LUNGS: Diminished throughout with very minimal scattered rales, but no rhonchi and no wheezes. ABDOMEN: Soft, nontender, and nondistended. Positive bowel sounds. No masses. No organomegaly. EXTREMITIES: Warm and dry with no edema. He does have hypoesthesia in the lower extremities. : Reveals some inflammation and irritation of the glans penis and anterior aspect of the foreskin. LABORATORY DATA: White count 16.8, hemoglobin 20.2, hematocrit 62.8, platelets 232. D-dimer 0.49. Sodium 137, potassium 4.2, chloride 96, CO2 is 30, BUN 18, creatinine is 1.32, glucose 409, AST 33, ALT is 81, alkaline phosphatase 108. Troponin less than 0.01. Albumin 4.0. IMAGING DATA: Chest x-ray, negative. CTA of chest shows no evidence of pulmonary embolus, linear parenchymal change in the right lung base suggestive more likely of atelectasis than infiltrate, and stable left lower lobe pulmonary nodules as compared to July 17, 2017. EKG shows sinus rhythm, some maybe left axis deviation and poor R-wave progression. No other acute ischemic changes. IMPRESSION AND PLAN: 1. Chest pain. It sounds like this may be more musculoskeletal in nature or could be some costochondritis, having recently been on steroids and having cough. The patient will remain on telemetry. We will continue to monitor serial troponins. We will also order a stress test, given his significant risk factors with hypertension and smoking as well as some family history. 2. Bronchitis. We will add some Levaquin as he does not appear to be improving with the doxycycline. 3. Chronic obstructive pulmonary disease. The patient has been on steroids, it did not help and that seemed to have raised his blood sugar and caused some yeast infection. We will avoid those. Continue nebulizer treatments. 4. Iraida balanitis. We will give nystatin ointment and is likely due to the steroids and related hyperglycemia should resolve. 5. Hyperglycemia secondary to recent steroid use. We will do Accu-Cheks and sliding scale insulin. 6. Polycythemia vera. This appears to be chronic. His numbers are consistent with his previous studies. 7. Leukocytosis, likely due to steroids and may be partially related to the polycythemia as well. 8. Mild acute renal insufficiency. The patient's creatinine is above his baseline. His GFR is typically in the upper 60s and today is 55. We will recheck in the morning. We will give very gentle hydration. Job ID: [id number]
[2018-07-11] MEDS: Nystatin Ointment 15 GM TUBE TOP SCH (20:44)
[2018-07-12] MEDS: Sodium Chloride 0.9% 1,000 ML IV SCH (05:38)
[2018-07-12 06:36] LABS: #Basophils 0.1 thou/uL (0.0-0.2); #Eosinphils 0.3 thou/uL (0.0-0.7); #Neutrophils 8.8 thou/uL (1.40-6.50); %Basophils 0.4 % (0.0-1.0); %Eosinophils 2.3 % (0.0-10.0); %Lymphocytes 23.1 % (21.0-51.0); %Monocytes 7.6 % (0.0-10.0); %Neutrophils 66.7 % (42.0-75.0); Hemoglobin 17.9 g/dL (14.0-18.0); Mean Corpuscular Hemoglobin 33.2 pg (27.0-31.0); Mean Platelet Volume 11.4 fL (7.4-10.4); Platelet Count 180 thou/uL (130-400); RBC Distribution Width 12.3 % (11.5-14.5); Red Blood Cell (RBC) Count 5.39 mill/uL (4.70-6.10); White Blood Cell (WBC) Count 13.2 thou/uL (4.8-10.8)
[2018-07-12 06:54] LABS: Anion Gap 12 mmol/L (10-20); BUN (Urea Nitrogen) 17 mg/dL (8.4-25.7); Calc. Creatinine Clearance 133 mL/min (70-130); Calcium 8.9 mg/dL (7.8-10.44); Carbon Dioxide 29 mmol/L (22-29); Chloride 100 mmol/L (98-107); Estimated GFR-MDRD 73; Glucose 266 mg/dL (70-105); Potassium 4.2 mmol/L (3.5-5.1); Sodium 137 mmol/L (136-145)
[2018-07-12] MEDS ORDERED: PROVENTIL INHALER 6.7 G (200 INHALATIONS) INH PRN (08:59)
[2018-07-12] MEDS ORDERED: hydrALAZINE 25 MG TAB PO SCH (09:00)
[2018-07-12] MEDS ORDERED: buPROPion HCl 100 MG TAB PO SCH (09:00)
[2018-07-12] MEDS ORDERED: Gabapentin 100 MG CAP PO SCH (09:00)
[2018-07-12] MEDS ORDERED: Losartan/Hydrochlorothiazide 100 mg/25 mg Tablet PO SCH (09:00)
[2018-07-12] MEDS ORDERED: Aspirin 81 mg Enteric Coated Tablet PO SCH (09:00)
[2018-07-12] MEDS ORDERED: Metoprolol Tartrate 100 MG TAB PO SCH (09:00)
[2018-07-12] MEDS ORDERED: Regadenoson 0.4 MG/5 ML SYRINGE ONE (09:23)
[2018-07-12] MEDS: Nystatin Ointment 15 GM TUBE TOP SCH (10:08)
[2018-07-12 11:43] VITALS: BP 139/81; TEMP 98
--- NOTE | 2018-07-12 12:05 | NM ---
RADIONUCLIDE STRESS REST MYOCARDIAL PERFUSION SCAN WITH CT ATTENUATION CORRECTION AND SPECT IMAGING LEFT VENTRICULAR WALL MOTION EVALUATION AND EJECTION FRACTION: HISTORY: Chest pain. FINDINGS: LexiScan protocol. Heterogeneous uptake of radiotracer throughout the left ventricular myocardium. Some diaphragmatic attenuation. No reversibility. QGS analysis of gated SPECT images shows no focal wall motion abnormalities. Ejection fraction calculated at 78%. IMPRESSION: Normal myocardial perfusion scan showing no evidence of ischemia. POS: [facility]
[2018-07-12] MEDS ORDERED: metFORMIN 500 MG TAB PO SCH (17:00)
[2018-07-12] MEDS ORDERED: Prazosin HCl 1 MG CAP PO SCH (21:00)
[2018-07-12] MEDS ORDERED: Mirtazapine 30 MG TAB PO SCH (21:00)
--- NOTE | 2018-07-13 06:23 | DIS ---
DATE OF ADMISSION: 07/11/2018 DATE OF DISCHARGE: 07/12/2018 DISCHARGE DIAGNOSES: 1. Chest pain. 2. Bronchitis. 3. Chronic obstructive pulmonary disease. 4. Iraida balanitis. 5. Hyperglycemia. 6. Polycythemia vera. 7. Leukocytosis. 8. Mild acute renal insufficiency. 9. History of hypertension. 10. History of lower extremity neuropathy. 11. History of anxiety. 12. History of depression. 13. History of posttraumatic stress disorder. HISTORY: For full history and physical, please see dictated H and P on 05/11/2019. Briefly, the patient is a 57-year-old male with history of some underlying COPD who developed a productive cough. He presented to his PCP who gave him some steroids and p.o. antibiotics (doxycycline). The patient's symptoms progressed and he developed some chest pain. The patient then presented to the emergency department here. He also noted that he was having some irritation around the glans penis and foreskin. The patient's workup included a chest x-ray which was negative. CT of the chest showed no pulmonary emboli. He has a couple of stable left lower lobe pulmonary nodules that have been unchanged in approximately one year. EKG showed some poor R-wave progression and left axis deviation. His white count was 16.8, BUN 18 and creatinine 1.32 which is slightly above his baseline. The patient had some diminished breath sounds throughout with some scattered rales, but no wheezes. HOSPITAL COURSE: The patient was placed on observation on telemetry for chest pain. He had serial cardiac isoenzymes, which were negative. He underwent a nuclear medicine stress test which showed no evidence of ischemia. He was treated with Levaquin and steroids were avoided given his candidal balanitis. Those symptoms did improve. The patient's blood sugar was 409 at presentation. He was started on sliding scale insulin and serial Accu-Cheks. It was unclear if this was related to the recent steroids or if the patient's morbid obesity has caused him some development of type 2 diabetes. The patient was educated on appropriate diet and instructed on how to monitor his blood sugars. He was also treated with nystatin lotion for the candidal balanitis, which was likely secondary to his glucosuria and steroid use. This improved overnight as well, although not resolved. PHYSICAL EXAMINATION: VITAL SIGNS: On the day of discharge, the patient is pain free. Temperature is 98.0, pulse 63, respirations 20, O2 saturation 96% on room air, BP 139/81. GENERAL: The patient is morbidly obese. He is in no distress. He is awake, alert, oriented, pleasant, and cooperative. HEART: Regular rate and rhythm without murmurs. LUNGS: Diminished, but clear bilaterally. ABDOMEN: Soft, nontender, and nondistended. EXTREMITIES: Warm and dry. LABORATORY DATA: White count is 13.2, hemoglobin 17.9, platelets 180. Glucose averaging around 250, BUN 17, creatinine is 1.05, which is back to his baseline. DISPOSITION: The patient is discharged to home. He is to continue with his usual home medications including Wellbutrin, Prazosin, Remeron, Celexa, hydralazine, Lopressor, Hyzaar, gabapentin, Symbicort, aspirin, Ventolin, and he will also have new prescriptions for metformin 500 mg p.o. b.i.d. and nystatin ointment to be applied b.i.d. He is also given a prescription for a glucometer lancets and test strips. He is to check his blood sugars q.i.d. with meals and at bedtime. He is to drink ample amounts of fluids and avoid sugars and carbs. FOLLOWUP: He is to follow up with [facility] in [place]. His activity level is as tolerated. He can return to the hospital any time should he have any need to do so. Job ID: [id number]
[2018-07-13] MEDS ORDERED: Citalopram 20 MG TAB PO SCH (09:00)
--- NOTE | 2018-07-13 13:33 | EKG ---
Test Reason : Blood Pressure : / mmHG Vent. Rate : 068 BPM Atrial Rate : 068 BPM P-R Int : 130 ms QRS Dur : 076 ms QT Int : 396 ms P-R-T Axes : 034 -32 028 degrees QTc Int : 421 ms Normal sinus rhythm Left axis deviation Poor anterior R wave progression Inferior infarct , age undetermined Possible Anterolateral infarct , age undetermined Low voltage QRS Abnormal ECG Confirmed by BRIAN CARTY, ELIZABETH Weiner ([id number]), offline editor CARL CARTAGENA ([id number]) on 07/13/2018 1:33:30 PM Referred By: BRIAN Confirmed By:ELIZABETH TORRES MD
== END 2018-07-12 16:00 | disposition home or self-care (01) ==
LOC: ERS 05:44 → ERHOLD 07:30 → 2SW 15:08
PROVIDERS: ADMIT Hospitalist; ATTEND Hospitalist
DX: R07.9 Chest pain, unspecified (principal); J40 Bronchitis, not specified as acute or chronic; B37.42 Candidal balanitis; R73.9 Hyperglycemia, unspecified; D72.829 Elevated white blood cell count, unspecified; D45 Polycythemia vera; N28.9 Disorder of kidney and ureter, unspecified; F41.9 Anxiety disorder, unspecified; F32.9 Major depressive disorder, single episode, unspecified; I10 Essential (primary) hypertension; G57.90 Unspecified mononeuropathy of unspecified lower limb; F43.10 Post-traumatic stress disorder, unspecified; F17.210 Nicotine dependence, cigarettes, uncomplicated; Z90.49 Acquired absence of other specified parts of digestive tract; Z79.2 Long term (current) use of antibiotics; Z79.84 Long term (current) use of oral hypoglycemic drugs; Z79.899 Other long term (current) drug therapy
CPT/HCPCS: 71045; 71275; 78452; 80048; 80053; 82550; 82962 ×2; 84484 ×2; 85025 ×2; 85379; 93005; 93017; 94760; 96360; 96361 ×2; 99285; A9500; G0378 ×2; 36415; 36416; J2785

== ENCOUNTER 2018-12-25 09:50 | Outpatient (CLI) | payer MEDICARE ==
--- NOTE | 2018-12-25 10:28 | RAD ---
TWO VIEW CHEST: HISTORY: Shortness of breath. COMPARISON: 07/01/2018. FINDINGS: Elevated right hemidiaphragm is unchanged. Lungs appear clear. No infiltrate or vascular congestion . Heart size is upper normal and stable. The osseous structures are unremarkable. IMPRESSION: No acute finding or interval change. POS: OFF
== END 2018-12-25 09:51 | disposition home or self-care (01) ==
LOC: RAD-FRANK 09:50
PROVIDERS: ATTEND Nurse Practitioner Family
DX: R06.02 Shortness of breath (principal)
CPT/HCPCS: 71046

== ENCOUNTER 2019-12-11 08:04 | Outpatient (CLI) | payer MEDICARE ==
--- NOTE | 2019-12-11 10:01 | MRI ---
MRI BRAIN WITH AND WITHOUT CONTRAST: DATE: 12/11/2019 HISTORY: 59-year-old male follow-up meningioma COMPARISON: prior outside facility MRI images and report are not available. TECHNIQUE: Multiplanar, multisequence MRI of the brain performed pre- and post-IV injection of gadolinium based contrast agent. FINDINGS: There is an enhancing, dural based, approximately 1.4 x 1.4 x 1.1 cm extra-axial mass at the left cer ebral convexity, mildly indenting the junction between the left superior frontal gyrus and left middle frontal gyrus, without causing vasogenic edema, andr located almost 2 cm lateral to the superi or sagittal sinus. Incidentally, a short distance of approximately 3 cm posterior to this, there is a small focus of cor tical and subcortical gliosis and encephalomalacia. There is no evidence of recent or remote hemorrhage. There is moderate restricted diffusion within the meningioma mentioned above, but not in the brain pa renchyma. Adrenals are normal in size and configuration. No abnormal intra-axial enhancement. No midline shift. Minimal chronic ischemic white matter changes. IMPRESSION: 1) small supratentorial meningioma over the left convexity. 2) nearby, a small focus of old left upper frontal insult, probably a small old cerebral infarction.
[2019-12-11] MEDS ORDERED: Magnevist 469MG/ML 20 ML VIAL ONE (13:04)
== END 2019-12-11 08:05 | disposition home or self-care (01) ==
LOC: BICMRI 08:04 → MRI 08:05
PROVIDERS: ATTEND Surgery
DX: D32.9 Benign neoplasm of meninges, unspecified (principal)
CPT/HCPCS: 70553; 82565; A9579

== ENCOUNTER 2020-02-29 20:18 | Emergency (ER) | payer MEDICARE, OTHER | END 2020-02-29 20:38 | disposition left against medical advice (07) | LOC: ERS 20:18 | DX: Z53.21 Procedure and treatment not carried out due to patient leaving prior to being seen by health care provider (principal) | CPT/HCPCS: 36416 ==

== ENCOUNTER 2020-05-19 14:09 | Outpatient (CLI) | payer MEDICARE ==
--- NOTE | 2020-05-19 15:26 | CT ---
CT ABDOMEN AND PELVIS WITH AND WITHOUT IV CONTRAST: 05/19/20 HISTORY: Hematuria. HISTORY: Other microscopic hematuria. Benign prostatic hyperplasia with lower urinary tract symptoms. Calculus of kidney. COMPARISON: 08/15/17. FINDINGS: There is continued elevation of the right hemidiaphragm with adjacent atelectatic changes. There are calcified granulomas in the spleen. The liver demonstrates decreased attenuation compared to the sple en consistent with fatty infiltration. No hepatic mass or abnormal biliary ductal dilatation is seen. No calcified gallstones are noted. The pancreas and adrenal glands are normal. There is a nonobstructing 9 mm right renal calculus. Bilateral renal cysts are again seen, the larges t in the left kidney measuring about 2 cm. There is normal contrast excretion into the ureters and th e urinary bladder. The prostate is enlarged. No free air, free fluid or lymphadenopathy is noted in the abdomen or pelvis. There are vascular calc ifications without evidence of aneurysmal dilatation of the abdominal aorta. The patient is post appe ndectomy. There is colonic diverticulosis. Degenerative changes are present in the spine. IMPRESSION: 1. Fatty liver. 2. Nonobstructing 9 mm right renal calculus. 3. Bilateral renal cysts. 4. Colonic diverticulosis. 5. Mild prostatic enlargement. POS: OFF
== END 2020-05-19 14:10 | disposition home or self-care (01) ==
LOC: BICCT 14:09
PROVIDERS: ATTEND Urology
DX: N20.0 Calculus of kidney (principal); N40.1 Benign prostatic hyperplasia with lower urinary tract symptoms; R31.29 Other microscopic hematuria; K57.30 Diverticulosis of large intestine without perforation or abscess without bleeding; N28.1 Cyst of kidney, acquired; K76.0 Fatty (change of) liver, not elsewhere classified
CPT/HCPCS: 74178; 82565

== ENCOUNTER 2021-04-28 11:38 | Outpatient (CLI) | payer MEDICARE | END 2021-04-28 11:39 | disposition home or self-care (01) | LOC: RAD-FRANK 11:38 | PROVIDERS: ATTEND Nurse Practitioner Family | DX: R05.9 Cough, unspecified (principal) | CPT/HCPCS: 71046 ==

== ENCOUNTER 2021-08-10 10:26 | Outpatient (CLI) | payer MEDICARE | END 2021-08-10 10:27 | disposition home or self-care (01) | LOC: RAD-FRANK 10:26 | PROVIDERS: ATTEND Nurse Practitioner Family | DX: R53.1 Weakness (principal) | CPT/HCPCS: 71046 ==

== ENCOUNTER 2022-01-27 19:04 | Emergency (ER) | payer MEDICARE ==
[2022-01-27 20:13] LABS: #Basophils 0.1 thou/uL (0.0-0.2); #Eosinphils 0.1 thou/uL (0.0-0.7); #Lymphocytes 1.7 thou/uL (1.20-3.40); #Monocytes 1.3 thou/uL (0.11-0.59); #Neutrophils 6.6 thou/uL (1.40-6.50); %Basophils 0.8 % (0.0-1.0); %Eosinophils 1.2 % (0.0-10.0); %Lymphocytes 17.3 % (21.0-51.0); %Monocytes 13.5 % (0.0-10.0); %Neutrophils 67.2 % (42.0-75.0); Hemoglobin 15.8 g/dL (14.0-18.0); Mean Corpuscular HGB CONC 33.2 g/dL (32.0-36.0); Mean Platelet Volume 10.4 fL (7.4-10.4); Platelet Count 175 thou/uL (130-400); RBC Distribution Width 12.5 % (11.5-14.5); Red Blood Cell (RBC) Count 4.66 mill/uL (4.70-6.10); White Blood Cell (WBC) Count 9.9 thou/uL (4.8-10.8)
[2022-01-27 20:33] LABS: ALT (SGPT) 85 U/L (8-55); AST (SGOT) 125 U/L (5-34); Alkaline Phosphatase 66 U/L (40-110); Anion Gap 15 mmol/L (10-20); BUN (Urea Nitrogen) 14 mg/dL (8.4-25.7); Bilirubin, Total 0.4 mg/dL (0.2-1.2); Calc. Creatinine Clearance 0 mL/min (70-130); Carbon Dioxide 28 mmol/L (22-29); Chloride 97 mmol/L (98-107); Estimated GFR 50; Globulin 3.1 g/dL (2.4-3.5); Glucose 124 mg/dL (70-105); Potassium 3.3 mmol/L (3.5-5.1); Protein, Total 7.1 g/dL (6.0-8.3); Sodium 137 mmol/L (136-145)
== END 2022-01-27 20:39 | disposition home or self-care (01) ==
LOC: ERS 19:04
DX: I95.9 Hypotension, unspecified (principal); U07.1 COVID-19; I25.2 Old myocardial infarction; I10 Essential (primary) hypertension; J44.9 Chronic obstructive pulmonary disease, unspecified; F17.210 Nicotine dependence, cigarettes, uncomplicated
CPT/HCPCS: 36415; 71045; 80053; 84484; 85025; 93005

== ENCOUNTER 2024-04-11 11:07 | Emergency (ER) | payer MEDICARE ==
[2024-04-11] MEDS ORDERED: Ibuprofen 200 MG TAB ONE (11:46)
[2024-04-11 11:50] LABS: Bacteria/HPF 2+ HPF (None Seen); Bilirubin Negative (Negative); Blood, Urine 3+ (Negative); CAUTI Indications for Culture Dysuria,urgency,freq; Clarity Extra Turbid (Clear); Glucose, Urine (Dipstick) Normal (Negative); Ketone, Urine Negative (Negative); Leukocyte 500 Leu/uL (Negative); Mucous/LPF 4+ LPF (<2+); Nitrite 1+ (Negative); Protein, Urine (Dipstick) 200 mg/dL (Neg-Trace); RBC/HPF Greater than 50 HPF (0-3); Specific Gravity, Urine 1.012 (1.002-1.036); Squamous Epithelial 0-3 HPF (0-3); Urobilinogen Normal mg/dL (Less than 2)
[2024-04-11 11:51] LABS: WBC/HPF Greater than 50 HPF (0-3)
[2024-04-11 11:53] LABS: Urine Culture Reflex Yes Yes
== END 2024-04-11 12:07 ==
LOC: ERS 11:07
DX: N39.0 Urinary tract infection, site not specified (principal); I25.2 Old myocardial infarction; I10 Essential (primary) hypertension; J44.9 Chronic obstructive pulmonary disease, unspecified; F17.210 Nicotine dependence, cigarettes, uncomplicated; Z55.6 Problems related to health literacy
CPT/HCPCS: 81001; 87077; 87086; 87186; 99283